=== PATIENT | female | born 1995 | race Caucasian/White ===

== ENCOUNTER 2023-06-25 14:12 | Outpatient (REF) | payer MEDICAID, SELFPAY ==
[2023-06-25 18:38] LABS: Anion Gap 15 (12-20); Blood Urea Nitrogen 10 mg/dL (9-16); Calcium 9.8 mg/dL (8.4-10.2); Carbon Dioxide 22 mmol/L (22-29); Chloride 104 mmol/L (96-108); Estimated Glomerular Filt Rate > 60; Potassium 3.9 mmol/L (3.3-5.1); Sodium 137 mmol/L (135-145)
[2023-06-25 18:54] LABS: Glucose Random 387 mg/dL (60-115)
== END 2023-06-25 14:13 | disposition home or self-care (01) ==
LOC: HO.CHCLDS 14:12
PROVIDERS: Visit Provider Internal Medicine
DX: E11.9 Type 2 diabetes mellitus without complications (principal); Z79.4 Long term (current) use of insulin
CPT/HCPCS: 36415; 80048

== ENCOUNTER 2023-07-13 | Outpatient (RCR) | payer MEDICAID, SELFPAY | END 2024-02-03 12:09 | disposition home or self-care (01) | LOC: HO.WCC | PROVIDERS: PCP Pediatrics; Visit Provider Physician Assistant | DX: E13.621 Other specified diabetes mellitus with foot ulcer (principal); L97.822 Non-pressure chronic ulcer of other part of left lower leg with fat layer exposed; L84 Corns and callosities; Z87.891 Personal history of nicotine dependence | CPT/HCPCS: 11042 ==

== ENCOUNTER 2025-01-03 11:49 | Outpatient (REF) | payer MEDICAID, SELFPAY ==
--- OUTSIDE RECORDS SUMMARY | 2025-01-03 13:22 | XMS_ITS | Encounter Summary ---
Author Organization [employer] Address [address] [place] [address] 7 [place] [address] Care Team Providers Care Radio Intelligence Operator Name Role Phone Mjao Swenson MD Primary Care Provider [phone] Yaritza Artis PharmD Unavailable [phone] Reason for Visit * Reason Onset Date Comments Med Refill 02/27/2024 Encounter Details Date Type Department Care Team ([facility] st Contact Info) Description 02/27/2024 Refill [facility] MED & PEDS [address] [place] [address] Donald Turner MD [address] [place] [address] Type 2 diabetes mellitus without complication, with long-term current use of insulin ([facility]) Social History Tobacco Use Types Packs/Day Years Used Date Smoking Tobacco: Former Cigarettes Q uit: 12/24/2021 Passive Smoke Exposure: Past Smokeless Tobacco: Former Alcohol Use Standard Drinks/Week Comments Not Currently 0 (1 standard drink = 0.6 oz pur e alcohol) Depression Answer Date Recorded Patient Health Questionnaire-9 Score 11 10/28/2023 Patient Health Questionnaire-9 Score 11 10/28/2023 Last PHQ-9: Questionnaire Data Not on file 0 10/28/2023 Housing Stability Answer Date Recorded What is your housing situation today? I do not have housing (Staying with others, in a hotel, in a retirement, living outside on the street, on a beach, in a car, or in a park 06/14/[address] you li ve. Do you have problems with any of the following? None of the above 06/14/2023 Food Insecurity Answer Date Recorded Within the past 12 months, y ou worried that your food would run out before you got money to buy more: Never True 06/25/2023 Within the past 12 months,th e food you bought just didn't last and you didn't have enough money to get more: Never True Transportation Answer Date Recorded In the past 12 months, has l ack of transportation kept you from medical appts, meetings, work or from getting things needed for daily living? No 06/25/2023 Utilities Answer Date Recorded In the past 12 months, has t he electric, gas, oil or water company threatened to shut off services in your home? No 06/25/2023 Depression Answer Date Recorded Patient Health Questionnaire-2 Score 4 10/28/2023 Comments Unknown Sex and Gender Information Value Date Recorded Sex Assigned at Female 12/30/2022 10:37 AM EDT Legal Sex Female 11:03 AM EDT Gender Identity Female 12/30/2022 10:37 AM EDT Sexual Orientation Straight 12/30/2022 10 :43 AM EDT documented as of this encounter Plan of Treatment Upcoming Encounters Date Type Department Care Team (Late st Contact Info) Description 01/12/2025 3:00 PM EDT Medication Management [facility] MED [facility] PEDS [address] [place] [address] Yaritza Artis, PharmD [address] [place] [address] 03/01/2025 3:15 PM EDT Office Visit [facility] MED [facility] PEDS [address] [place] [address] Majo Swenson MD [address] [place] [address] documented as of this encounter Visit Diagnoses Diagnosis Type 2 diabetes mellitus without complication, with long-term current use of insulin ([facility]) documented in this encounter Additional Health Concerns Assessment Noted Time PHQ-9 Depression Total Score: 11 024 4:23 PM EST documented as of this encounter Care Teams Radio Intelligence Operator Relationship Specialty Start Date End Date Majo Swenson MD [address] [place] [address] PCP - General Internal Medicine 11/30/22 Yaritza Artis PharmD [address] [place] [address] Pharmacist Internal Medicine 10/16/24 documented as of this encounter
--- OUTSIDE RECORDS SUMMARY | 2025-01-03 13:22 | XMS_ITS | Encounter Summary ---
Author Organization [employer] Address [address] [place] [address] 7 [place] [address] Care Team Providers Care Medication Reconciliation Technician Name Role Phone Majo Swenson MD Primary Care Provider [phone] Yaritza Artis PharmD Unavailable [phone] Reason for Visit * Reason Onset Date Comments Med Refill 03/07/2024 Encounter Details Date Type Department Care Team ([facility] st Contact Info) Description 03/07/2024 Refill [facility] MED & PEDS [address] [place] [address] Majo Swenson MD [address] [place] [address] Social History Tobacco Use Types Packs/Day Years [...] with others, in a hotel, in a snf, living outside on the street, on a [...] the past 12 months, has t he [employer], gas, oil or water company threatened to [...] 01/12/2025 3:00 PM EDT Medication Management [facility] MED & PEDS [address] [place] [address] Yaritza Artis, PharmD [address] [place] [address] 03/01/2025 3:15 PM EDT Office Visit [facility] MED & PEDS [address] [place] [address] Majo Swenson MD [address] [place] [address] documented as of this encounter Visit Diagnoses Not on filedocumented in this encounter Additional Health Concerns Assessment Noted Time PHQ-9 Depression Total Score: 11 024 4:23 PM EST documented as of this encounter Care Teams Medication Reconciliation Technician Relationship Specialty Start Date End Date Majo Swenson MD [address] [place] [address] PCP - General Internal Medicine 11/30/22 Yaritza Artis, Bess [address] [place] [address] Pharmacist Internal Medicine 10/16/24 documented as of this encounter
--- OUTSIDE RECORDS SUMMARY | 2025-01-03 13:22 | XMS_ITS | Encounter Summary ---
Author Organization [employer] Address [address] [place] [address] 7 [place] [address] Care Team Providers Care Back Tender Insulation Board Name Role Phone Majo Swenson MD Primary Care Provider [phone] Yaritza Artis PharmD Unavailable [phone] Encounter Details Date Type Department Care Team ([facility] Contact Info) Description 12/06/2024 Orders Only [facility] MED & PEDS [address] [place], [place] [phone] Donald Turner MD [address] [place] [address] Yeast infection (Primary Dx) Social History Tobacco Use Types Packs/Day Years [...] What is your housing situation today? I have sukhdeep espinoza 11/02/[address] you li ve. Do you have problems with any of the following? None of the above 11/02/2024 Food Insecurity Answer Date Recorded Within the past 12 months, y ou worried that your food would run out before you got money to buy more: Never True 11/02/2024 Within the past 12 months,th e food you bought just didn't last and you didn't have enough money to get more: Never True Transportation Answer Date Recorded In the past 12 months, has l ack of transportation kept you from medical appts, meetings, work or from getting things needed for daily living? No 11/02/2024 Utilities Answer Date Recorded In the past 12 months, has t he electric, gas, oil or water company threatened to shut off services in your home? No 11/02/2024 Depression Answer Date Recorded Patient Health Questionnaire-2 Score 4 10/28/2023 Internet Access Answer Date Recorded Internet Access Q1 Yes 11/02/2024 Internet Access Q2 Not on file 11/02/2024 Comments Unknown Sex and Gender Information Value [...] Description 01/12/2025 3:00 PM EDT Medication Management [facility] MED & PEDS [address] [place] [address] Yaritza Artis PharmD [address] [place] [address] 03/01/2025 3:15 PM EDT Office Visit [facility] MED & PEDS [address] [place] [address] Majo Swenson MD [address] [place] [address] documented as of this encounter Visit Diagnoses Diagnosis Yeast infection- Primary documented in this encounter Additional Health Concerns Assessment Noted Time PHQ-9 Depression Total Score: 11 024 4:23 PM EST documented as of this encounter Care Teams Back Tender Insulation Board Relationship Specialty Start Date End Date Majo Swenson MD [address] [place] [address] PCP - General Internal Medicine 11/30/22 Yaritza Artis PharmD [address] [place] [address] Pharmacist Internal Medicine 10/16/24 documented as of this encounter
--- OUTSIDE RECORDS SUMMARY | 2025-01-03 13:22 | XMS_ITS | Encounter Summary ---
Author Organization [employer] Address [address] [facility] 7t [place] [address] Care Team Providers Care Hand Fabric Cutter Name Role Phone Majo Swenson MD Primary Care Provider [phone] Yaritza Artis PharmD Unavailable [phone] Encounter Details Date Type Department Care Team (Latest Contact Info) Description 01/03/2025 Travel Social History Tobacco Use Types Packs/Day Years [...] Description 01/12/2025 3:00 PM EDT Medication Management [facility] MED & PEDS [address] [place] [address] Yaritza Artis PharmD [address] [place] [address] 03/01/2025 3:15 PM EDT Office Visit [facility] MED & PEDS [address] [place] [address] Majo Swenson MD [address] [place] [address] documented as of this encounter Visit Diagnoses Not on filedocumented in this encounter Additional Health Concerns Assessment Noted Time PHQ-9 Depression Total Score: 11 024 4:23 PM EST documented as of this encounter Care Teams Hand Fabric Cutter Relationship Specialty Start Date End Date Majo Swenson MD [address] [place] [address] PCP - General Internal Medicine 11/30/22 Yaritza Artis PharmD [address] [place] [address] Pharmacist Internal Medicine 10/16/24 documented as of this encounter
--- OUTSIDE RECORDS SUMMARY | 2025-01-03 13:22 | XMS_ITS | Encounter Summary ---
Author Organization [employer] Address [address] [facility] 7t [place] [address] Care Team Providers Care Extractor Plant Operator Name Role Phone Majo Swenson MD Primary Care Provider [phone] Yaritza Artis PharmD Unavailable [phone] Reason for Visit * Reason Onset Date Comments Med Refill 03/07/2024 Encounter Details Date Type Department Care Team (Late st Contact Info) Description 03/07/2024 Refill [facility] [address] [place], [place] [id number] Nicolasa Quinn NP [address] [place] [address] Type 2 diabetes mellitus without complication, with long-term current use of insulin ([facility]) Social History Tobacco Use Types Packs/Day Years [...] with others, in a hotel, in a custodial, living outside on the street, on a [...] Description 01/12/2025 3:00 PM EDT Medication Management [facility] MED & PEDS [address] [place] [address] Yaritza Artis, PharmD [address] [place] [address] 03/01/2025 3:15 PM EDT Office Visit [facility] MED & PEDS [address] [place] [address] Majo Swenson MD [address] [place] [address] documented as of this encounter Visit Diagnoses Diagnosis Type 2 diabetes mellitus without complication, with long-term current use of insulin ([facility]) documented in this encounter Additional Health Concerns Assessment Noted Time PHQ-9 Depression Total Score: 11 024 4:23 PM EST documented as of this encounter Care Teams Extractor Plant Operator Relationship Specialty Start Date End Date Majo Swenson MD [address] [place] [address] PCP - General Internal Medicine 11/30/22 Yaritza Artis PharmD [address] [place] [address] Pharmacist Internal Medicine 10/16/24 documented as of this encounter
--- OUTSIDE RECORDS SUMMARY | 2025-01-03 13:22 | XMS_ITS | Clinical Summary ---
Author Organization [facility] Address [address] [place] [address] Phone Care Team Providers Care Escrow Closer Name Role Phone GeorgeGlenys DO Primary Care Provider Unavaila ble Immunizations Immunization Administration Dates Next Due DTaP 5 10/08/1999,09/27/1997 Hep A, ped/adol 10/23/2011,08/11/2010 Hep B, ped/adol 04/20/1997,04/21/1996,1995 Hib (PRP-T) 07/28/1998, 7,06/02/1996, 996 Influenza, injectable, trivalent 011,06/14/2010,08/09/2009, 009 MMR 04/20/1997,06/02/1996 Meningococcal Conj (Menactra) MCV4P 12/19/2012,1 10/01/2006 Tdap 08/01/2007 Social History Tobacco Use Types Packs/Day Years Used Date Smoking Tobacco: Some Days Comments:Current Some Day Sm oker Comments Unknown Sex and Gender Information Value Date Recorded Sex Assigned at Not on file Legal Sex Female 6:21 PM EDT Gender Identity Not on file Sexual Orientation Not on file Last Filed Vital Signs Vital Sign Reading Time Taken Comments Blood Pressure - - Pulse 112 10/23/2011 11:01 AM EST Temperature 37.1 ??C (98.8 ??F) 03/21/2013 4:42 PM ED T Respiratory Rate - - Oxygen Saturation - - Inhaled Oxygen Concentration - - Weight 135 kg (298 lb) 03/21/2013 4:42 PM EDT Height 163.8 cm (5' 4.5 ) 03/21/2013 4:42 PM EDT Body Mass Index 50.36 03/21/2013 4:42 PM EDT Plan of Treatment Health Maintenance Due Date Last Done Comments Varicella Vaccines (1 of 2 - 13+ 2-dose series) 2008 DTaP,Tdap,and Td Vaccines (4 - Td or Tdap) 08/01/2017 08/01/2007, 10/08/1999, 09/27/1997 Influenza Vaccines (#1) 2024 06/04/20 11, 06/14/2010, 08/09/2009, Additional history exists COVID-19 Vaccine ( season) 2024 Hepatitis B Vaccines Completed 04/20/1997, 04/21/1996, 1995 MMR Vaccines Completed 04/20/1997, 06/02/1996 HIB Vaccines Completed 07/28/1998, 04/06, 06/02/1996, Additional history exists Hepatitis A Vaccines Completed 10/23/2011, 08/11/20 10 Meningococcal Vaccine Completed 12/19/2012, 007 HPV Vaccines Aged Out No longer eligi ble based on patient's age to complete this topic IPV Vaccines Aged Out No longer eligi ble based on patient's age to complete this topic Men B Vaccine Aged Out No longer elig ible based on patient's age to complete this topic Pneumococcal Vaccine Aged Out No long er eligible based on patient's age to complete this topic Care Teams Escrow Closer Relationship Specialty Start Date End Date Glenys Vazquez DO PCP - General 01/12/18
--- OUTSIDE RECORDS SUMMARY | 2025-01-03 13:22 | XMS_ITS | Encounter Summary ---
Author Organization [employer] Address [address] [facility] 7 [place] [address] Care Team Providers Care Cigar Inspector Name Role Phone Majo Swenson MD Primary Care Provider [phone] Yaritza Artis PharmD Unavailable [phone] Reason for Visit * Reason Onset Date Comments Prior Authorization 04/14/2024 Encounter Details Date Type Department Care Team (Late st Contact Info) Description 04/14/2024 Telephone [facility] [address] [place] [address] Majo Swenson MD [address] [place] [address] Prior Authorization Social History Tobacco Use Types Packs/Day Years [...] with others, in a hotel, in a nursing home, living outside on the street, on a [...] the past 12 months, has t he [employer], gas, oil or water [employer] threatened to shut off services in your home? No 06/25/2023 Depression Answer Date Recorded Patient Health Questionnaire-2 Score 4 10/28/2023 Comments Unknown Sex and Gender Information Value Date Recorded Sex Assigned at Female 12/30/2022 10:37 AM EDT Legal Sex Female 11:03 AM EDT Gender Identity Female 12/30/2022 10:37 AM EDT Sexual Orientation Straight 12/30/2022 10 :43 AM EDT documented as of this encounter Miscellaneous Notes * Telephone Encounter - Hipolito Griffin - 04/14/2024 11:03 AM EDT Tc from Mom calling in regards to semaglutide (Ozempic) 2 MG/1.5ML solution pen- injecton. Mom contact insurance and was informed that pcp would need to contact provider number for insurance to have medication approved. Mom stated they have been waiting for over 2 weeks and needs to sheepskin pickler medication today if possible. If any questions for mom/pt please contact [phone]. documented in this encounter Plan of Treatment Upcoming Encounters Date Type Department Care Team ([facility] st Contact Info) Description 01/12/2025 3:00 PM EDT Medication Management [facility] MED & PEDS [address] [place] [address] Yaritza Artis, PharmD [address] [place] [address] 03/01/2025 3:15 PM EDT Office Visit [facility] MED & PEDS [address] [place] [address] Majo Swenson MD [address] [place] [address] documented as of this encounter Visit Diagnoses Not on filedocumented in this encounter Additional Health Concerns Assessment Noted Time PHQ-9 Depression Total Score: 11 024 4:23 PM EST documented as of this encounter Care Teams Cigar Inspector Relationship Specialty Start Date End Date Majo Swenson MD [address] [place] [address] PCP - General Internal Medicine 11/30/22 Yaritza Artis PharmD [address] [place] [address] Pharmacist Internal Medicine 10/16/24 documented as of this encounter
--- OUTSIDE RECORDS SUMMARY | 2025-01-03 13:22 | XMS_ITS | Clinical Summary ---
Author Organization [address] [place] [address] Address [address] [place] [address] Phone Care Team Providers Care Training Engineer Name Role Phone Majo Swenson MD Primary Care Provider [phone] Allergies No known active allergies Medications No known medications Active Problems No known active problems Encounters Date Type Department Care Team Description 12/25/2024 9:19 PM EDT - 12/26/2024 1:14 AM EDT Emergency [facility] Emergency [address] [place] [address] Acute nonintractable headache, unspecified headache type (Primary Dx) Discharge Disposition: Home or Self Care 12/18/2024 2:30 PM EDT Consult Orthopedic Surgery [facility] [address] [address] Cain Jason, DPM Ingrowing nail (Primary Dx); Type 2 diabetes mellitus with other skin complications ([facility] V24, [facility] V28); Corns and callosities; Diabetic mononeuropathy simplex ([facility] V24, [facility] V28); Ulcer of toe of left foot, limited to breakdown of skin ([facility] V24, [facility] V28) from Last 3 Months Social History Tobacco Use Types Packs/Day Years Used Date Smoking Tobacco: Never Assessed Comments Unknown Sex and Gender Information Value Date Recorded Sex Assigned at Not on file Legal Sex Female 10:15 AM EST Gender Identity Not on file Sexual Orientation Not on file Obstetrics History Last Filed Vital Signs Vital Sign Reading Time Taken Comments Blood Pressure 133/86 12/25/2024 8:14 PM EDT Pulse 100 12/25/2024 8:14 PM EDT Temperature 36.6 ??C (97.9 ??F) 12/25/2024 8:14 PM ED T Respiratory Rate 16 12/25/2024 8:14 PM EDT Oxygen Saturation 100% 12/25/2024 10:50 PM EDT Inhaled Oxygen Concentration - - Weight 95.7 kg (211 lb) 12/25/2024 8:14 PM EDT Height 165.1 cm (5' 5 ) 12/25/2024 8:14 PM EDT Body Mass Index 35.11 12/25/2024 8:14 PM EDT Plan of Treatment Upcoming Encounters Date Type Department Care Team (Late st Contact Info) Description 03/19/2025 3:30 PM EDT Office Visit Orthopedic Surgery - [place] [address] [phone] Cain Jason, DPM [address] [address] Health Maintenance Due Date Last Done Comments Diabetes: Annual Foot Exam 2005 Diabetes: Annual Retina Eye Exam 2005 Hepatitis B Vaccines (1 of 3 - 19+ 3-dose series) 2014 Pneumococcal Vaccine: Pediatrics (0 to 5 Years) and At-Risk Patients (6 to 64 Years) (1 of 2 - PCV) 2014 Cervical Cancer Screening: P ap Smear 2016 Diabetes: Annual GFR (Glomerular Filtration Rate) 11/05/2023 11/04/2022, 09/14/2022, 09/02/2022 COVID-19 Vaccine (3 - 2023-2 5 season) 2024 08/05/2021, 12/14/2020 Cholesterol Screening (Lipid Panel) 11/13/2024 Depression Screening 11/13/2024 10/28/2023 Diabetes: Annual Urine Albumin-Creatinine Ratio (uACR) 11/13/2024 HIV Screening 11/13/2024 Hepatitis C Screening 11/13/2024 Social Influencers of Health Screening 11/13/2024 Hypertension/CHF/CAD Annual BMP Blood Test 12/18/2024 11/04/2022, 09/14/2022, 09/02/2022 Diabetes: Blood Sugar Contro l Test (HGBA1C) 04/15/2025 10/16/2024, 09/18/2022, 09/18/2022 Influenza Vaccine (Season Ended) 2025 DTaP,Tdap,and Td Vaccines (2 - Td or Tdap) 02/19/2033 02/19/2023 HIB Vaccines Aged Out No longer eligi ble based on patient's age to complete this topic HPV Vaccines Aged Out No longer eligi ble based on patient's age to complete this topic Hepatitis A Vaccines Aged Out No long er eligible based on patient's age to complete this topic IPV Vaccines Aged Out No longer eligi ble based on patient's age to complete this topic MMR Vaccines Aged Out No longer eligi ble based on patient's age to complete this topic Meningococcal ACWY Vaccine Aged Out N o longer eligible based on patient's age to complete this topic Meningococcal B Vaccine Aged Out No l onger eligible based on patient's age to complete this topic RSV Immunization Patients Under 20 months Aged Out No longer eligible b ased on patient's age to complete this topic Varicella Vaccines Aged Out No longer eligible based on patient's age to complete this topic Procedures Procedure Name Priority Date/Time Associated Diagnosis Comments CT HEAD WO CONTRAST STAT 12/26/2024 1 2:10 AM EDT POC , URINE DIAGNOSTIC STAT 12/25/2024 9:33 PM EDT from Last 3 Months Results * CT Head wo Contrast (12/26/2024 12:10 AM EDT) Anatomical Region Laterality Modality Head and Neck Computed Tomogra phy 12/26/2024 12:5 0 AM EDT Impressions 12/26/2024 12:50 AM EDT 1. No acute intracranial findings. This document has been electronically signed by: Adi Pires MD on 12/26/2024 00:50:16 Narrative 12/26/2024 12:50 AM EDT INDICATION: Worsening Headache x1.[address] head without contrast Comparison: None Findings: No intra-axial mass, midline shift, hydrocephalus, or acute hemorrhage. Kirkpatrick-white matter differentiation is preserved. The visualized paranasal sinuses and mastoid air cells are normal. The orbits are within normal limits. No skull fracture. Procedure Note Adi Pires MD - 12/26/2024 INDICATION: Worsening Headache x1.[address] head without contrast Comparison: None Findings: No intra-axial mass, midline shift, hydrocephalus, or acute hemorrhage. Kirkpatrick-white matter differentiation is preserved. The visualized paranasal sinuses and mastoid air cells are normal. The orbits are within normal limits. No skull fracture. IMPRESSION: 1. No acute intracranial findings. This document has been electronically signed by: Adi Pires MD on 12/26/2024 00:50:[address] PROCEDURES Final Result * POC , urine manually resulted (12/25/2024 9:33 PM EDT) HCG, Ur POC Negative Negative POC hCG Int QC Pass? Yes Yes Urine Urine specimen obtained by clean catch procedure / Unknown 12/25/2024 9:33 PM EDT us Phan GAN POINT OF CARE TEST ENTER/EDIT OR DERABLES Final Result from Last 3 Months Insurance MEDICAID - [place] Care Teams Training Engineer Relationship Specialty Start Date End Date Majo Swenson MD [address] [place] [phone] PCP - General Internal Medicine 12/26/24
--- OUTSIDE RECORDS SUMMARY | 2025-01-03 13:22 | XMS_ITS | Encounter Summary ---
Author Organization [employer] Address [address] [place] [address] 7 [place] [address] Care Team Providers Care Granite Polisher Apprentice Name Role Phone Majo Swenson MD Primary Care Provider [phone] Yaritza Artis PharmD Unavailable [phone] Reason for Visit * Reason Onset Date Comments Med Refill 03/03/2024 Encounter Details Date Type Department Care Team ([facility] st Contact Info) Description 03/03/2024 Refill [facility] [address] [place] [address] Majo Swenson MD [address] [place] [address] Social History Tobacco Use Types Packs/Day Years [...] with others, in a hotel, in a correction, living outside on the street, on a [...] the past 12 months, has t he [employer], gas, oil or water company threatened to [...] Description 01/12/2025 3:00 PM EDT Medication Management [facility] MED & PED[facility] [address] [place] [address] Yaritza Artis, PharmD [address] [place] [address] 03/01/2025 3:15 PM EDT Office Visit [facility] P[facility] [address] [place] [address] Majo Swenson MD [address] [place] [address] documented as of this encounter Visit Diagnoses Not on filedocumented in this encounter Additional Health Concerns Assessment Noted Time PHQ-9 Depression Total Score: 11 024 4:23 PM EST documented as of this encounter Care Teams Granite Polisher Apprentice Relationship Specialty Start Date End Date Majo Swenson MD [address] [place] [address] PCP - General Internal Medicine 11/30/22 Yaritza Artis, Bess [address] [place] [address] Pharmacist Internal Medicine 10/16/24 documented as of this encounter
--- OUTSIDE RECORDS SUMMARY | 2025-01-03 13:22 | XMS_ITS | Encounter Summary ---
Author Organization [facility] Address [address] [place] [address] Phone Care Team Providers Care Ironworker Helper Shop Name Role Phone Glenys Vazquez DO Primary Care Provider Unavaila ble Encounter Details Date Type Department Care Team (Late st Contact Info) Description 02/06/2011 Conversion Encounter [facility] [address] [facility] [place] [id number] Social History Tobacco Use Types Packs/Day Years Used Date Smoking Tobacco: Never Assessed Comments Unknown Sex and Gender Information Value Date Recorded Sex Assigned at Not on file Legal Sex Female 6:21 PM EDT Gender Identity Not on file Sexual Orientation Not on file documented as of this encounter Plan of Treatment Not on file documented as of this encounter Visit Diagnoses Not on filedocumented in this encounter Care Teams Ironworker Helper Shop Relationship Specialty Start Date End Date Glenys Vazquez DO PCP - General 01/12/18 documented as of this encounter
--- OUTSIDE RECORDS SUMMARY | 2025-01-03 13:22 | XMS_ITS | Encounter Summary ---
Author Organization [employer] Address [address] [place] [address] 7 [place] [address] Care Team Providers Care Cardiopulmonary Technologist Chief Name Role Phone Majo Swenson MD Primary Care Provider [phone] Yaritza Artis PharmD Unavailable [phone] Reason for Visit * Reason Onset Date Comments Med Refill 07/14/2024 Encounter Details Date Type Department Care Team ([facility] st Contact Info) Description 07/14/2024 Refill [facility] MED & PEDS [address] [place] [address] Majo Swenson MD [address] [place] [address] Social History Tobacco Use Types Packs/Day Years [...] the past 12 months, has t he [employer], gas, oil or water company threatened to [...] Description 01/12/2025 3:00 PM EDT Medication Management [facility] MED & PEDS [address] [place] [address] Yaritza Artis, PharmD [address] [place] [address] 03/01/2025 3:15 PM EDT Office Visit [facility] [address] [place] [address] Majo Swenson MD [address] [place] [address] documented as of this encounter Visit Diagnoses Not on filedocumented in this encounter Additional Health Concerns Assessment Noted Time PHQ-9 Depression Total Score: 11 024 4:23 PM EST documented as of this encounter Care Teams Cardiopulmonary Technologist Chief Relationship Specialty Start Date End Date Majo Swenson MD [address] [place] [address] PCP - General Internal Medicine 11/30/22 Yaritza Artis, Bess [address] [place] [address] Pharmacist Internal Medicine 10/16/24 documented as of this encounter
--- OUTSIDE RECORDS SUMMARY | 2025-01-03 13:22 | XMS_ITS | Encounter Summary ---
Author Organization [employer] Address [address] [facility] 7t [place] [address] Care Team Providers Care Plant Controls Specialist Name Role Phone Majo Swenson MD Primary Care Provider [phone] Yaritza Artis PharmD Unavailable [phone] Encounter Details Date Type Department Care Team (Latest Contact Info) Description 01/02/2025 Travel Social History Tobacco Use Types Packs/Day [...] Description 01/12/2025 3:00 PM EDT Medication Management [facility] MED & PEDS [address] [place] [address] Yaritza Artis PharmD [address] [place] [address] 03/01/2025 3:15 PM EDT Office Visit [facility] MED & PED[facility] [address] [place] [address] Majo Swenson MD [address] [place] [address] documented as of this encounter Visit Diagnoses Not on filedocumented in this encounter Additional Health Concerns Assessment Noted Time PHQ-9 Depression Total Score: 11 024 4:23 PM EST documented as of this encounter Care Teams Plant Controls Specialist Relationship Specialty Start Date End Date Majo Swenson MD [address] [place] [address] PCP - General Internal Medicine 11/30/22 Yaritza Artis PharmD [address] [place] [address] Pharmacist Internal Medicine 10/16/24 documented as of this encounter
--- OUTSIDE RECORDS SUMMARY | 2025-01-03 13:22 | XMS_ITS | Encounter Summary ---
Author Organization [employer] Address [address] [place] [address] 7t [place] [address] Care Team Providers Care Company Laborer Name Role Phone Majo Swenosn MD Primary Care Provider [phone] Yaritza Artis PharmD Unavailable [phone] Reason for Visit * Reason Comments Med Refill Encounter Details Date Type Department Care Team ([facility] Contact Info) Description 07/22/2024 Refill [facility] MED & PEDS [address] [place], [place] [phone] Adrianne Lehman MD [address] [place] [address] Social History Tobacco Use Types Packs/Day Years [...] with others, in a hotel, in a group home, living outside on the street, on [...] Description 01/12/2025 3:00 PM EDT Medication Management [facility] MED & PEDS [address] [place] [address] Yaritza Artis, PharmD [address] [place], [place] [id number] 03/01/2025 3:15 PM EDT Office Visit [facility] MED & PEDS [address] [place] [address] Majo Swenson MD [address] [place] [address] documented as of this encounter Visit Diagnoses Not on filedocumented in this encounter Additional Health Concerns Assessment Noted Time PHQ-9 Depression Total Score: 11 024 4:23 PM EST documented as of this encounter Care Teams Company Laborer Relationship Specialty Start Date End Date Majo Swenson MD [address] [place] [address] PCP - General Internal Medicine 11/30/22 Yaritza Artis, EzraD [address] [place] [address] Pharmacist Internal Medicine 10/16/24 documented as of this encounter
--- OUTSIDE RECORDS SUMMARY | 2025-01-03 13:22 | XMS_ITS | Encounter Summary ---
Author Organization [employer] Address [address] [facility] 7 [place] [address] Care Team Providers Care Mule Spinner Name Role Phone Majo Swenson MD Primary Care Provider [phone] Yaritaz Artis PharmD Unavailable [phone] Reason for Visit * Reason Onset Date Comments Call Back Request 04/10/2024 Encounter Details Date Type Department Care Team ([facility] st Contact Info) Description 04/10/2024 Telephone [facility] [address] [place] [address] Majo Swenson MD [address] [place] [address] Call Back Request Social History Tobacco Use Types Packs/Day Years [...] with others, in a hotel, in a usp, living outside on the street, on a [...] the past 12 months, has t he [employer], gas, oil or water [employer] threatened to shut off services in your [...] encounter Miscellaneous Notes * Telephone Encounter - Melinda Shaw - 04/10/2024 9:17 AM EDT Tc from mom requesting a call back in [employer] [place] and [employer] denied by documented in this encounter Plan of Treatment Upcoming Encounters Date Type Department Care Team ([facility] st Contact Info) Description 01/12/2025 3:00 PM EDT Medication Management [facility] MED & PEDS [address] [place] [address] Yaritza Artis, PharmD [address] [place] [address] 03/01/2025 3:15 PM EDT Office Visit [facility] MED & PEDS [address] [place], [place] [phone] Majo Swenson MD [address] [place] [address] documented as of this encounter Visit Diagnoses Not on filedocumented in this encounter Additional Health Concerns Assessment Noted Time PHQ-9 Depression Total Score: 11 024 4:23 PM EST documented as of this encounter Care Teams Mule Spinner Relationship Specialty Start Date End Date Majo Swenson MD [address] [place] [address] PCP - General Internal Medicine 11/30/22 Yaritza Artis PharmD [address] [place] [address] Pharmacist Internal Medicine 10/16/24 documented as of this encounter
--- OUTSIDE RECORDS SUMMARY | 2025-01-03 13:22 | XMS_ITS | Encounter Summary ---
Author Organization [employer] Address [address] [place] [address] [address] [place] [address] Care Team Providers Care Behavioral Therapy Coordinator Name Role Phone Majo Swenson MD Primary Care Provider [phone] Yaritza Artis PharmD Unavailable [phone] Reason for Referral * Consultation (Routine) - Authorized Specialty Diagnoses / Procedures Referred By Contoriana t Referred To Contact Behavioral Health Diagnoses Anxiety Majo Swenson MD [address] [place] [address] Phone: tel: fax: Referral ID Status Reason Start Date Expiration Date Visits Requested Visits Authorized [id number] Authorized Specialty Services Required 01/03/2025 01/03/2026 1 1 Encounter Details Date Type Department Care Team ([facility] st Contact Info) Description 01/03/2025 11:15 AM EDT Office Visit [facility] CH[facility] MED & PEDS [address] [place] [address] Majo Swenson MD [address] [place] [address] Anxiety (Primary Dx) Social History Tobacco Use Types [...] AM EDT documented as of this encounter Last Filed Vital Signs Vital Sign Reading Time Taken Comments Blood Pressure 120/92 01/03/2025 11:21 AM EDT Pulse 108 01/03/2025 11:21 AM EDT Temperature 36.6 ??C (97.9 ??F) 01/03/2025 11:21 AM E DT Respiratory Rate 20 01/03/2025 11:21 AM EDT Oxygen Saturation - - Inhaled Oxygen Concentration - - Weight 94.8 kg (209 lb) 01/03/2025 11:21 AM EDT Height 165.1 cm (5' 5 ) 01/03/2025 11:21 AM EDT Body Mass Index 34.78 01/03/2025 11:21 AM EDT documented in this encounter Plan of Treatment Upcoming Encounters Date Type Department Care Team (Late st Contact Info) Description 01/12/2025 3:00 PM EDT Medication Management [facility] MED & PEDS [address] [place] [address] Yaritza Artis PharmD [address] [place] [address] 03/01/2025 3:15 PM EDT Office Visit [facility] MED & PED[facility] [address] [place] [address] Majo Swenson MD [address] [place] [address] Scheduled Referrals Name Type Priority Associated Diagnoses Order Schedule Referral to Behavioral Health Outpatient Referral Routine Anxiety Expected: 01/03/2025 (Approximate), Expires: 01/03/2026 documented as of this encounter Visit Diagnoses Diagnosis Anxiety- Primary Anxiety state, unspecified documented in this encounter Additional Health Concerns Assessment Noted Time PHQ-9 Depression Total Score: 11 024 4:23 PM EST documented as of this encounter Care Teams Behavioral Therapy Coordinator Relationship Specialty Start Date End Date Majo Swenson MD [address] [place] [address] PCP - General Internal Medicine 11/30/22 Yaritza Artis, Bess [address] [place] [address] Pharmacist Internal Medicine 10/16/24 documented as of this encounter
--- OUTSIDE RECORDS SUMMARY | 2025-01-03 13:22 | XMS_ITS | Encounter Summary ---
Author Organization [employer] Address [address] [place] [address] 7 [place] [address] Care Team Providers Care Disability Benefits Specialist Name Role Phone Majo Swenson MD Primary Care Provider [phone] Yaritza Artis PharmD Unavailable [phone] Reason for Visit * Reason Onset Date Comments Med Refill 09/17/2024 Encounter Details Date Type Department Care Team ([facility] st Contact Info) Description 09/17/2024 Refill [facility] MED & PEDS [address] [place] [address] Majo Swenson MD [address] [place] [address] Social History Tobacco Use Types Packs/Day Years [...] with others, in a hotel, in a long term, living outside on the street, on a [...] the past 12 months, has t he [employer], gas, oil or water company threatened to [...] 01/12/2025 3:00 PM EDT Medication Management [facility] PED[facility] [address] [place] [address] Yaritza Artis, PharmD [address] [place] [address] 03/01/2025 3:15 PM EDT Office Visit [facility] PED[facility] [address] [place] [address] Majo Swenson MD [address] [place] [address] documented as of this encounter Visit Diagnoses Not on filedocumented in this encounter Additional Health Concerns Assessment Noted Time PHQ-9 Depression Total Score: 11 024 4:23 PM EST documented as of this encounter Care Teams Disability Benefits Specialist Relationship Specialty Start Date End Date Majo Swenson MD [address] [place] [address] PCP - General Internal Medicine 11/30/22 Yaritza Artis, Bess [address] [place] [address] Pharmacist Internal Medicine 10/16/24 documented as of this encounter
--- OUTSIDE RECORDS SUMMARY | 2025-01-03 13:22 | XMS_ITS | Encounter Summary ---
Author Organization [employer] Address [address] [place] [address] 7 [place] [address] Care Team Providers Care Manager Chemical Name Role Phone Majo Swenson MD Primary Care Provider [phone] Yaritza Artis PharmD Unavailable [phone] Reason for Visit * Reason Onset Date Comments Med Refill 01/03/2025 Encounter Details Date Type Department Care Team ([facility] st Contact Info) Description 01/03/2025 Refill [facility] MED & PEDS [address] [place] [address] Majo Swenson MD [address] [place] [address] Social History Tobacco Use Types Packs/Day Years [...] Description 01/12/2025 3:00 PM EDT Medication Management [facility] MED & PEDS [address] [place] [address] Yaritza Artis, PharmD [address] [place] [address] 03/01/2025 3:15 PM EDT Office Visit [facility] MED & PEDS [address] [place] [address] Majo Swenson MD [address] [place] [address] documented as of this encounter Visit Diagnoses Not on filedocumented in this encounter Additional Health Concerns Assessment Noted Time PHQ-9 Depression Total Score: 11 024 4:23 PM EST documented as of this encounter Care Teams Manager Chemical Relationship Specialty Start Date End Date Majo Swenson MD [address] [place] [address] PCP - General Internal Medicine 11/30/22 Yaritza Artis, Bess [address] [place] [address] Pharmacist Internal Medicine 10/16/24 documented as of this encounter
--- OUTSIDE RECORDS SUMMARY | 2025-01-03 13:22 | XMS_ITS | Encounter Summary ---
Author Organization [employer] Address [address] [place] [address] 7 [place] [address] Care Team Providers Care Mill Operator Head Name Role Phone Majo Swenson MD Primary Care Provider [phone] Yaritza Artis PharmD Unavailable [phone] Encounter Details Date Type Department Care Team ([facility] st Contact Info) Description 10/04/2023 Orders Only [facility] MED & PEDS [address] [place], [place] [phone] Donald Turner MD [address] [place] [address] Type 2 diabetes mellitus without complication, with long-term current use of insulin ([facility]) (Primary Dx) Social History Tobacco Use Types Packs/Day Years Used Date Smoking Tobacco: Former Cigarettes Q uit: 12/24/2021 Smokeless Tobacco: Former Alcohol Use Standard Drinks/Week Comments Not Currently 0 (1 standard drink = 0.6 oz pur e alcohol) Depression Answer Date Recorded Patient Health Questionnaire-9 Score 18 12/31/2022 Housing Stability Answer Date Recorded What is your housing situation today? I do not have housing (Staying with others, in a hotel, in a senior care, living outside on the street, on a [...] Answer Date Recorded Patient Health Questionnaire-2 Score 6 12/31/2022 Comments Yes Sex and Gender Information Value Date Recorded Sex Assigned at Female 12/30/2022 10:37 AM EDT Legal Sex Female 11:03 AM EDT Gender Identity Female 12/30/2022 10:37 AM EDT Sexual Orientation Straight 12/30/2022 10 :43 AM EDT documented as of this encounter Plan of Treatment Upcoming Encounters Date Type Department Care Team (Late st Contact Info) Description 01/12/2025 3:00 PM EDT Medication Management [facility]ED[facility] [address] [place] [address] Yaritza Artis, PharmD [address] [place], [place] [phone] 03/01/2025 3:15 PM EDT Office Visit [facility] PED[facility] [address] [place] [address] Majo Swenson MD [address] [place] [address] documented as of this encounter Visit Diagnoses Diagnosis Type 2 diabetes mellitus without complication, with long-term current use of insulin ([facility])- Primary documented in this encounter Additional Health Concerns Assessment Noted Time PHQ-9 Depression Total Score: 18 023 9:19 AM EDT documented as of this encounter Care Teams Mill Operator Head Relationship Specialty Start Date End Date Majo Swenson MD [address] [place] [address] PCP - General Internal Medicine 11/30/22 Yaritza Artis, EzraD [address] [place] [address] Pharmacist Internal Medicine 10/16/24 documented as of this encounter
--- OUTSIDE RECORDS SUMMARY | 2025-01-03 13:22 | XMS_ITS | Encounter Summary ---
Author Organization [employer] Address [address] [place] [address] 7 [place] [address] Care Team Providers Care Senior Technical Specialist Name Role Phone Majo Swenson MD Primary Care Provider [phone] Yaritza Artis PharmD Unavailable [phone] Encounter Details Date Type Department Care Team ([facility] Contact Info) Description 04/28/[address] [facility] MED & PEDS [address] [place], [place] [phone] Majo Swenson MD [address] [place] [address] Social History Tobacco Use Types Packs/Day Years [...] with others, in a hotel, in a skilled nursing, living outside on the street, on a [...] Description 01/12/2025 3:00 PM EDT Medication Management [facility] & PEDS [address] [place] [address] Yaritza Artis PharmD [address] [place] [address] 03/01/2025 3:15 PM EDT Office Visit [facility] MED & PEDS [address] [place] [address] Majo Swenson MD [address] [place] [address] documented as of this encounter Visit Diagnoses Not on filedocumented in this encounter Additional Health Concerns Assessment Noted Time PHQ-9 Depression Total Score: 11 024 4:23 PM EST documented as of this encounter Care Teams Senior Technical Specialist Relationship Specialty Start Date End Date Majo Swenson MD [address] [place] [address] PCP - General Internal Medicine 11/30/22 ArtisYaritza PharmD [address] [place] [address] Pharmacist Internal Medicine 10/16/24 documented as of this encounter
--- OUTSIDE RECORDS SUMMARY | 2025-01-03 13:22 | XMS_ITS | Encounter Summary ---
Author Organization [employer] Address [address] [place] [address] 7 [place] [address] Care Team Providers Care Rn Gyn Name Role Phone Majo Swenson MD Primary Care Provider Yaritza Artis PharmD Unavailable [phone] Reason for Visit * Reason Onset Date Comments Med Refill 08/01/2024 Encounter Details Date Type Department Care Team ([facility] st Contact Info) Description 08/01/2024 Refill [facility] MED & PEDS [address] [place] [address] Majo Swenson MD [address] [place] [address] Social History Tobacco Use Types Packs/Day Years [...] the past 12 months, has t he [employer], gas, oil or water company threatened to [...] Description 01/12/2025 3:00 PM EDT Medication Management [facility] MED & PEDS [address] [place] [address] Yaritza Artis, PharmD [address] [place] [address] 03/01/2025 3:15 PM EDT Office Visit [facility] MED & PEDS [address] [place] [address] Majo Swenson MD [address] [place] [address] documented as of this encounter Visit Diagnoses Not on filedocumented in this encounter Additional Health Concerns Assessment Noted Time PHQ-9 Depression Total Score: 11 024 4:23 PM EST documented as of this encounter Care Teams Rn Gyn Relationship Specialty Start Date End Date Majo Swenson MD [address] [place] [address] PCP - General Internal Medicine 11/30/22 Yaritza Artis, Bess [address] [place] [address] Pharmacist Internal Medicine 10/16/24 documented as of this encounter
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
[2025-01-03 14:35] LABS: Estimated Average Glucose 171 mg/dL; Hemoglobin A1C 223.5656 umol/L; Hemoglobin A1c % 7.6 % (<6.0); Total Hemoglobin (HGBA1C) 3786.6581 umol/L
[2025-01-03 14:48] LABS: Alanine Aminotransferase 41 U/L (0-31); Albumin Level 4.1 g/dL (3.5-5.0); Alkaline Phosphatase 99 U/L (39-117); Anion Gap 12 (12-20); Aspartate Amino Transferase 25 U/L (5-31); Bilirubin Total 0.2 mg/dL (0.0-1.0); Blood Urea Nitrogen 11 mg/dL (9-16); Calcium 9.4 mg/dL (8.4-10.2); Carbon Dioxide 25 mmol/L (22-29); Chloride 103 mmol/L (96-108); Cholesterol 137 mg/dL (<200); Estimated Glomerular Filt Rate > 60; Glucose Random 133 mg/dL (60-115); HDL Cholesterol 46 mg/dL (>40); LDL Cholesterol Calculated 64 mg/dL (<100); Sodium 136 mmol/L (135-145); Total Protein 7.6 g/dL (6.5-8.0); Triglycerides 138 mg/dL (<150)
[2025-01-03 15:06] LABS: TSH reflex Free T4 0.73 uIU/mL (0.32-4.0)
== END 2025-01-03 11:50 | disposition home or self-care (01) ==
LOC: HO.CHCLDS 11:49
PROVIDERS: Visit Provider Pediatrics
DX: F41.9 Anxiety disorder, unspecified (principal); E11.9 Type 2 diabetes mellitus without complications; Z79.4 Long term (current) use of insulin
CPT/HCPCS: 36415; 80053; 80061; 83036; 84443

== ENCOUNTER 2025-05-03 15:46 | Outpatient (REF) | payer MEDICAID, SELFPAY ==
--- OUTSIDE RECORDS SUMMARY | 2025-05-03 15:15 | XMS_ITS | Encounter Summary ---
Author Organization [employer] Address [address] [place] [address] 7 [place] [address] Care Team Providers Care Mushroom Grower Name Role Phone Majo Swenson MD Primary Care Provider [phone] Yaritza Artis PharmD Unavailable [phone] Encounter Details Date Type Department Care Team ([facility] Contact Info) Description 05/03/2025 3:15 PM EDT Office Visit [facility] [address] [place], [place] [phone] Majo Swenson MD [address] [place] [address] Acute cystitis without hematuria (Primary Dx); Primary hypertension; Moderate anxiety Social History Tobacco Use Types Packs/Day Years Used Date Smoking Tobacco: Former Cigarettes Q uit: 12/24/2021 Passive Smoke Exposure: Past Smokeless Tobacco: Former Alcohol Use Standard Drinks/Week Comments Not Currently 0 (1 standard drink = 0.6 oz pur e alcohol) Depression Answer Date Recorded Patient Health Questionnaire-9 Score 2 01/19/2025 Patient Health Questionnaire-9 Score 2 01/19/2025 Last PHQ-9: Questionnaire Data Not on file 0 01/19/2025 Housing Stability Answer Date Recorded What is [...] Answer Date Recorded Patient Health Questionnaire-2 Score 0 01/19/2025 Internet Access Answer Date Recorded Internet Access Q1 Yes 11/02/2024 Internet Access Q2 Not on file 11/02/2024 Comments No Sex and Gender Information Value Date Recorded Sex Assigned at Female 12/30/2022 10:37 AM EDT Legal Sex Female 11:03 AM EDT Gender Identity Female 12/30/2022 10:37 AM EDT Sexual Orientation Straight 12/30/2022 10 :43 AM EDT documented as of this encounter Last Filed Vital Signs Vital Sign Reading Time Taken Comments Blood Pressure 110/70 05/03/2025 3:22 PM EDT Pulse 92 05/03/2025 3:22 PM EDT Temperature 36.1 C (97 F) 05/03/2025 3:22 PM EDT Respiratory Rate 20 05/03/2025 3:22 PM EDT Oxygen Saturation - - Inhaled Oxygen Concentration - - Weight 96.2 kg (212 lb) 05/03/2025 3:22 PM EDT Height - - Body Mass Index 34.9 04/10/2025 11:21 AM EDT documented in this encounter Progress Notes * Majo Swenson MD - 05/03/2025 3:15 PM EDT Subjective Patient ID: Tegan Martinez is a 29 y.o. female who presents for UTI follow up. Tegan is a 29 y/o diabetic female patient of ours here for f/u acute UTI treated at a local urgent care clinic initially with Macrobid. She was then called and her antibiotic was switched to Bactrim twice daily for 7 days. Patient started taking the Bactrim today, denies dysuria or fevers. Denies nausea or vomiting or abdominal pain. States has been drinking water. UA today shows large blood but she has started menstruating, no nitrites or leukocytes. Review of Systems Constitutional: Negative for activity change, chills, fever and unexpected weight change. Respiratory: Negative for cough, shortness of breath and wheezing. Cardiovascular: Negative for chest pain, palpitations and leg swelling. Gastrointestinal: Negative for abdominal pain and blood in stool. Endocrine: Negative for polydipsia and polyuria. Genitourinary: Positive for vaginal bleeding. Negative for decreased urine volume, difficulty urinating, dyspareunia, dysuria, enuresis, flank pain, frequency, hematuria, menstrual problem and pelvicpain. Musculoskeletal: Negative for arthralgias and gait problem. Skin: Negative for color change and rash. Neurological: Negative for dizziness and headaches. Hematological: Negative for adenopathy. Psychiatric/Behavioral: Negative for dysphoric mood, hallucinations, sleep disturbance and suicidalideas. The patient is not nervous/anxious. Objective BP 110/70 (BP Location: Left arm, Patient Position: Sitting, BP Cuff Size: Adult) Pulse92 Temp 97 ??F (36.1 ??C) (Oral) Resp 20 Wt 212 lb (96.2 kg) LMP 05/01/2025 (Exact Date) BMI 34.90 kg/m?? Physical Exam Constitutional: General: She is not in acute distress. Appearance: Normal appearance. She is not ill-appearing. HENT: Head: Normocephalic. Right Ear: Tympanic membrane and ear canal normal. Left Ear: Tympanic membrane and ear canal normal. Nose: Nose normal. Mouth/Throat: Mouth: Mucous membranes are moist. Pharynx: No oropharyngeal exudate or posterior oropharyngeal erythema. Eyes: Extraocular Movements: Extraocular movements intact. Conjunctiva/sclera: Conjunctivae normal. Pupils: Pupils are equal, round, and reactive to light. Cardiovascular: Rate and Rhythm: Normal rate and regular rhythm. Pulses: Normal pulses. Heart sounds: Normal heart sounds. Pulmonary: Effort: Pulmonary effort is normal. No respiratory distress. Breath sounds: Normal breath sounds. Abdominal: General: There is distension. Palpations: Abdomen is soft. Tenderness: There is no abdominal tenderness. There is no right CVA tenderness, left CVA tendernessor guarding. Musculoskeletal: General: Normal range of motion. Cervical back: Normal range of motion. Skin: General: Skin is warm. Capillary Refill: Capillary refill takes less than 2 seconds. Neurological: General: No focal deficit present. Mental Status: She is alert and oriented to person, place, and time. Psychiatric: Mood and Affect: Mood normal. Behavior: Behavior normal. Thought Content: Thought content normal. Judgment: Judgment normal. Assessment/Plan Diagnoses and all orders for this visit: Acute cystitis without hematuria Comments: Repeat UA benign except for large blood but patient is currently menstruating. Drink plenty of water. Finish course of Bactrim twice daily prescribed at urgent care. Send urinary culture and change antibiotic if needed. Patient will be called with results once available. Follow-up with me and with CD[facility] on May 10 as scheduled. Orders: - POCT Urinalysis - Culture, Urine, Routine; Future Primary hypertension Comments: BP well-controlled and stable today. Medications with no changes. Moderate anxiety Comments: Patient was referred to behavioral health therapy at her last visit and states has her initial appointment next week. Advised not to miss. documented in this encounter Plan of Treatment Upcoming Encounters Date Type Department Care Team (Late st Contact Info) Description 05/10/2025 1:30 PM EDT Telemedicine [facility] [address] [place] [address] Yaritza Artis, PharmD [address] [place] [address] Scheduled Orders Name Type Priority Associated Diagnoses Orde r Schedule Culture, Urine, Routine Microbiology Routine Acute cystitis without hematuria Expected: 05/03/2025 (Approximate), Expires: 05/03/2026 documented as of this encounter Procedures Procedure Name Priority Date/Time Associated Diagnosis Comments POCT URINALYSIS DIPSTICK Routine 05/03/2025 3:55 PM EDT Acute cystitis without hematuria documented in this encounter Results * (ABNORMAL) POCT Urinalysis (05/03/2025 3:55 PM EDT) Color, UA Red Clarity, UA Hazy Glucose, UA Negative Bilirubin, UA Negative Ketones, UA Negative Spec Grav, UA 1.030 Blood, UA Positive(A) Negative, None Detected Comment:large pH, UA 5.5 Protein, UA Few 15 Comment:100 Urobilinogen, UA 0.2 Leukocytes, UA Negative Negative, Rare, Trace Nitrite, UA Negative Negative, None Detected Appearance, UA hazy QC Media Lot # [id number] Lot# Expiration Date 93,025 Urine 05/03/2025 3:55 PM EDT Majo Swenson MD POINT OF CARE TEST ENTER/EDIT ORDERABLES Final Result documented in this encounter Visit Diagnoses Diagnosis Acute cystitis without hematuria- Primary Primary hypertension Unspecified essential hypertension Moderate anxiety documented in this encounter Additional Health Concerns Assessment Noted Time PHQ-9 Depression Total Score: 2 01/20/20 25 8:23 AM EDT documented as of this encounter Care Teams Mushroom Grower Relationship Specialty Start Date End Date Majo Swenson MD [address] [place] [address] PCP - General Internal Medicine 11/30/22 Yaritza Artis PharmD [address] [place] [address] Pharmacist Internal Medicine 10/16/24 documented as of this encounter
--- OUTSIDE RECORDS SUMMARY | 2025-05-03 16:08 | XMS_ITS | Encounter Summary ---
Author Organization [employer] Address [address] [place] [address] [address] [place] [address] Care Team Providers Care Principal Mechanical Engineer Name Role Phone Majo Swenson MD Primary Care Provider [phone] Yaritza Artis PharmD Unavailable [phone] Reason for Visit * Reason Onset Date Comments Med Refill 01/03/2025 Encounter Details Date Type Department Care Team ([facility] Contact Info) Description 01/03/2025 Refill [facility] [address] [place], [place] [id number] Majo Swenson MD [address] [place] [address] Social History Tobacco Use Types Packs/Day Years [...] Info) Description 05/10/2025 1:30 PM EDT Telemedicine [facility] [address] [place] [address] Yaritza Artis PharmD [address] [place] [address] documented as of this encounter Visit Diagnoses Not on filedocumented in this encounter Additional Health Concerns Assessment Noted Time PHQ-9 Depression Total Score: 11 024 4:23 PM EST documented as of this encounter Care Teams Principal Mechanical Engineer Relationship Specialty Start Date End Date Majo Swenson MD [address] [place] [address] PCP - General Internal Medicine 11/30/22 Yaritza Artis PharmD [address] [place] [address] Pharmacist Internal Medicine 10/16/24 documented as of this encounter
--- OUTSIDE RECORDS SUMMARY | 2025-05-03 16:08 | XMS_ITS | Clinical Summary ---
Author Organization [employer] Address [address] [place] [address] 7[address] [place] [address] Care Team Providers Care Pressing Machine Tender Name Role Phone Majo Swenson MD Primary Care Provider [phone] Yaritza Artis PharmD Unavailable [phone] Allergies No known active allergies Medications * This document contains information received from the source organization and may not represent a complete record from that organization. Blood Pressure kit Check BP daily as needed 1 kit 023 Active acetaminophen (Tylenol) 325 MG tablet TAKE TWO TABLETS EVERY 4 HOURS NEEDED, DO NOT EXCEED 12 tabs PER DAY 023 Active Alcohol Swabs (B-D SINGLE USE SWABS REGULAR) pads USE 1 DIRECTED WITH INSULIN ADMINISTRATION 4 TIMES DAILY 023 Active FreeStyle lancetsIndicati ons:Type 2 diabetes mellitus without complication, with long-term current use of insulin ([facility]) 1 each by Other route 3 times daily. 100 each 11 024 Active FREESTYLE LITE test stripIndication s:Type 2 diabetes mellitus without complication, with long-term current use of insulin (CMS/[facility]) Check BS tid 100 each 11 024 Active ammonium lactate (Lac-Hydrin) 12 % lotion Apply topically to skin daily 396 g 11 025 Active hydrOXYzine HCl (Atarax) 25 MG tablet Take 1 tablet (25 mg) by mouth every 8 (eight) hours if needed for anxiety. 90 tablet 025 Active Tirzepatide (Mounjaro) 12.5 MG/0.5ML solution auto-injectorIn dications:Type 2 diabetes mellitus without complication, without long-term current use of insulin (CMS/[facility]) Inject 12.5 mg under the skin 1 (one) time per week. 2 mL 1 025 Active NIFEdipine XL (Procardia XL) 30 MG 24 hr tabletIndicatio ns:Primary hypertension Take 1 tablet (30 mg) by mouth Once per day. Do not crush, chew, or split. 90 tablet Active Vit-Fe Fumarate-FA ( Vitamins) 28-0.8 MG tabletIndicatio ns:Family Planning Take 1 tablet by mouth Once per day. 90 tablet 3 025 2025 Active loperamide (Imodium) 2 MG capsule Take 1 capsule daily as needed for diarrhea Active metFORMIN XR (Glucophage-XR) 500 MG 24 hr tabletIndicatio ns:Type 2 diabetes mellitus without complication, without long-term current use of insulin (CMS/[facility]) Take 1 tablet (500 mg) by mouth Once per day. Take with the largest meal of the day 90 tablet 1 Active Continuous Glucose Sensor (FreeStyle Ana 3 Plus Sensor) miscIndications :Type 2 diabetes mellitus without complication, without long-term current use of insulin ([facility]) 1 each every 15 days. 2 each Active nitrofurantoin, macrocrystal-mo nohydrate, (Macrobid) 100 MG capsule TAKE 1 CAPSULE (ORAL) 2 TIMES PER DAY FOR 5 DAYS MUST ADMINISTER WITH A MEAL/FOOD Active fluconazole (Diflucan) 100 MG tablet TAKE ONE TABLET ON FIRST DAY OF ANTIBIOTICS AND ONE TABLET ON LAST DAY OF ANTIBIOTICS Active sulfamethoxazol e-trimethoprim (Bactrim DS) 800-160 MG tablet Take 1 tablet by mouth 2 times daily. Active vitamin (Prenatabs Rx) 29-1 MG tablet Take 1 tablet by mouth in the morning. 2024 Discontinued( ed list cleanup (will not trigger notification to Pharmacy)) triamcinolone (Kenalog) 0.5 % ointment Apply topically 2 times daily. 45 g 3 024 2024 Continuous Glucose Contracts Director (FreeStyle Ana 2 [place]) device SCAN SENSOR EVERY 8 HOURS 1 each 024 2024 Discontinued(M ed list cleanup (will not trigger notification to Pharmacy)) dapagliflozin (Farxiga) 5 MG Take 1 tablet (5 mg) by mouth Once per day. 90 tablet 2 025 2024 Discontinued(T herapy completed) pseudoephedrine (Sudafed) 60 MG tablet Take 1 tablet (60 mg) by mouth every 6 (six) hours if needed for congestion for up to 10 days. 30 tablet 025 2024 Discontinued(M ed list cleanup (will not trigger notification to Pharmacy)) lisinopril-hydr oCHLOROthiazide 10-12.5 MG tablet Take 1 tablet by mouth Once per day. 90 tablet 1 025 2024 Discontinued(A lternate therapy) Continuous Glucose Sensor (FreeStyle Ana 2 Sensor) [facility] USE DIRECTED AND CHANGE EVERY 14 DAYS 2 each 025 2024 Discontinued(M ed list cleanup (will not trigger notification to Pharmacy)) Xzydufkl-Ane-Nn -FA ( 1 + IRON PO) Take 1 tablet by mouth Once per day. 2024 Discontinued(M ed list cleanup (will not trigger notification to Pharmacy)) Hospital, Clinic, or Other Facility Administered Medication Ordered Dose Route Frequency Start Date End Date Status lidocaine (Xylocaine) 1 % injection 40 mgIndications:Nexplanon removal 40 mg IJ Once 04/10/2025 04/10/2025 Ended Active Problems Problem Noted Date Diagnosed Date Nexplanon removal 04/12/2025 Assessment & Plan (04/12/2025 9:48 AM EDT): Nexplanon removed intact, easily. See procedure note. Report redness, pain or swelling at removal site. Report irregular bleeding or missed menses. Keep pressure bandage on x 24h, steristrips and bandaid x 3-5 days. Keep arm dry for 24 hours. Moderate anxiety 01/19/2025 Primary hypertension 12/18/2024 Central obesity 04/13/2023 GBS [...] - contraception plans - - Gender - Name - - Circumcision - - - - Epidural - - Time Signal Wirer - - Flu - - Tdap - Encounters Date Type Department Care Team Description 05/03/2025 3:15 PM EDT Office Visit [facility] [address] [place] [address] Majo Swenson MD Acute cystitis without hematuria (Primary Dx); Primary hypertension; Moderate anxiety 05/03/2025 Travel 04/24/2025 2:00 PM EDT Telemedicine [facility] [address] [place] [address] Yaritza Artis PharmD Type 2 diabetes mellitus without complication, without long-term current use of insulin ([facility]) (Primary Dx); Primary hypertension 04/24/2025 Travel 04/18/2025 Telephone [facility] [address] [place] [address] Majo Swenson MD CGM PA 04/10/2025 11:00 AM EDT Procedure Visit [facility] [address] [place] [address] Lulu Tse MD Nexplanon removal (Primary Dx); Encounter for preconception consultation 04/09/2025 2:00 PM EDT Telemedicine [facility] [address] [place] [address] Yaritza Artis, Bess Type 2 diabetes mellitus without complication, without long-term current use of insulin (CMS/HCC) (Primary Dx); Primary hypertension 04/09/2025 Orders Only [facility] [address] [place] [address] Majo Swenson MD 04/09/2025 Travel 04/03/2025 Travel 04/02/2025 Travel 03/20/2025 Refill [facility] [address] [place] [address] Majo Swenson MD Type 2 diabetes mellitus without complication, without long-term current use of insulin (CMS/HCC) 03/07/2025 Refill [facility] [address] [place] [address] Majo Swenson MD 03/01/2025 3:15 PM EDT Office Visit [facility] [address] [place] [address] Majo Swenson MD Type 2 diabetes mellitus without complication, without long-term current use of insulin (CMS/HCC) (Primary Dx); Primary hypertension 03/01/2025 Travel 02/28/2025 Refill [facility] [address] [place] [address] Majo Swenson MD 02/23/2025 Orders Only [facility] [address] [place] [address] Majo Swenson MD 02/15/2025 Refill [facility] [address] [place] [address] Yaritza Artis PharmD 02/13/2025 Refill [facility]ED[facility] [address] [place] [address] Majo Swenson MD from Last 3 Months Immunizations Immunization Administration Dates Next Due Tdap 02/19/2023 Family [...] Q2 Not on file 11/02/2024 Comments No Intention Date Recorded No desire to become (finding) 0 12/14/2024 Sex and Gender Information Value Date Recorded [...] 20 05/03/2025 3:22 PM EDT Oxygen Saturation 98% 04/10/2025 11:21 AM EDT Inhaled Oxygen Concentration - - Weight 96.2 kg (212 lb) 05/03/2025 3:22 PM EDT Height 166 cm (5' 5.35 ) 04/10/2025 11:21 AM EDT Body Mass Index 34.9 04/10/2025 11:21 AM EDT Plan of Treatment Upcoming Encounters Date Type Department Care Team (Late st Contact Info) Description 05/10/2025 1:30 PM EDT Telemedicine [facility] [address] [place] [address] Yaritza Artis, PharmD [address] [place] [address] Health Maintenance Due Date Last Done Comments Dental Oral Exam 1995 Dental Prophylaxis 1995 Dental X-Ray: Bitewings 1995 Dental X-Ray: Full Mouth 1995 HIV Screening 1995 Eye Exam 2005 HPV Vaccines (1 - 3-dose series) 2010 Hepatitis C Screening 2013 Diabetes: Urine Protein Screening 2014 Hepatitis B Vaccines (1 of 3 - 19+ 3-dose series) 2014 Pneumococcal Vaccine: Pediatrics (0 to 5 Years) and At-Risk Patients (6 to 49) Years (1 of 2 - PCV) 2014 COVID-19 Vaccine (3 - season) 2024 08/05/2021, 12/14/2020 Influenza Vaccine (#1) 2025 Diabetes: Hemoglobin A1C 06/01/2025 025, 01/03/2025, 10/16/2024, Additional history exists Disability Screening 10/31/2025 10/31/2024 Alcohol/Substance Use Screening 11/02/2025 11/02/2024 SDOH Screening 11/02/2025 11/02/2024 Diabetes: Foot Exam 12/14/2025 12/14/2024, 12/14/2024, 12/14/2024, Additional history exists Family Planning (PISQ) 12/18/2025 12/18/2024 Lipid Panel 01/03/2026 01/03/2025 Depression Screening 01/19/2026 01/19/2025, 10/31/19 Tobacco Screening 05/03/2026 05/03/2025 Pap Smear 09/18/2027 09/18/2022 DTaP/Tdap/Td Vaccines (2 [...] 3:55 PM EDT Acute cystitis without hematuria POCT , URINE Routine 04/10/2025 1:05 PM EDT Encounter for preconception consultation [facility] REMOVAL NON-BIODEGRADABLE DRUG DELIVERY IMPLANT Routine 04/10/2025 12:06 PM EDT Nexplanon removal POCT GLYCATED HEMOGLOBIN, TOTAL Routine 03/01/2025 4:24 PM EDT Type 2 diabetes mellitus without complication, without long-term current use of insulin ([facility]) Primary hypertension POCT GLUCOSE Routine 03/01/2025 4:23 PM EDT Type 2 diabetes mellitus without complication, without long-term current use of insulin ([facility]) Primary hypertension LIPID PANEL, STANDARD Routine 01/03/2025 11:53 AM EDT HM PAP/HPV Routine 09/18/2022 from Last 3 Months or Most Recently Relevant to Health Maintenance Results * (ABNORMAL) POCT Urinalysis (05/03/2025 3:55 [...] Media Lot # [id number] Lot# Expiration Date Urine 05/03/2025 3:55 PM EDT Majo Swenson MD POINT OF CARE TEST ENTER/EDIT ORDERABLES Final Result * POCT Urine (04/10/2025 1:05 PM EDT) Preg Test, Ur Negative Negative, Indeterminate, None Detected, Invalid, Specimen unsatisfactory for evaluation, Weakly Positive, 2+ QC Media Lot # [id number] Lot# Expiration Date ,026 Urine 04/10/2025 1:05 PM EDT Lulu Tse MD POINT OF CARE TEST ENTER/EDIT ORDERABLES Final Result * VA REMOVAL NON-BIODEGRADABLE DRUG DELIVERY IMPLANT (04/10/2025 12:06 PM EDT) Lulu Salazar MD - 04/10/2025 12:06 PM EDT Lulu Tse MD 04/12/2025 9:52 AM Insertion/Removal of Contraceptive Capsule Date/Time: 04/10/2025 12:06 PM Performed by: Lulu Tse MD Authorized by: Lulu Tse MD Participating Staff: Dana Gonzales [place] Consent: Consent obtained: Written Consent given by: Patient Procedural risks and benefits discussed: Yes Patient questions answered: yes Patient agrees, verbalizes understanding, and wants to proceed: yes Indication: Indication: presence of non-biodegradable drug delivery implant Pre-procedure: Pre-procedure timeout performed: yes Prepped with: povidone-iodine Local anesthetic: Lidocaine without epinephrine The site was cleaned and prepped in a sterile fashion: yes Procedure: Procedure: Removal Small stab incision was made in arm: yes Left/right: Left Site was closed with steri-strips and pressure bandage applied: yes Lulu Tse MD IN CLINIC/BEDSIDE ORDERABLES Final Result * (ABNORMAL) POCT HGB A1C (03/01/2025 4:24 PM EDT) Hemoglobin A1C 7.5(A) 4.0 - 6.0 % Blood 03/01/2025 4:24 PM EDT Majo Swenson MD POINT OF CARE TEST ENTER/EDIT ORDERABLES Final Result * POCT Glucose (03/01/2025 4:23 PM EDT) Glucose Blood, POC 151 60 - 200 mg/dL Blood Capillary blood specimen / Unknown 03/01/2025 4:23 PM EDT Majo Swenson MD POINT OF CARE TEST ENTER/EDIT ORDERABLES Final Result * Lipid Panel, Standard (01/03/2025 11:53 AM EDT) Triglycerides 138 <150 mg/dL [facility] Comment:Desirable Triglyceri de: less than 150 mg/dLBorderline High Triglyceride 150-199 mg/dLHigh Triglyceride: 200-499 mg/dLVery High Triglyceride: greater than or equal to 5OO mg/dL Cholesterol 137 <200 mg/dL [facility] Comment:Desirable Cholestero l: less than 200 mg/dLBorderline High Cholesterol: 200-239 mg/dLHigh Cholesterol: greater than 239 mg/dL LDL Cholesterol Calculated 64 <100 mg/dL [facility] Comment:Desirable LDL: less than 100 mg/dLNear Optimal/Above Optimal LDL: 110- 129 mg/dLBorderline High LDL: 130-159 mg/dLHigh LDL: 160-189 mg/dLVery High LDL: greater than or equal to 190 mg/dL HDL Cholesterol 46 >40 mg/dL [facility] Comment:Desirable HDL: great er than 40 mg/dL Note: This HDL assay may give artificially low results in patients with liver disease. 01/03/2025 11:5 3 AM EDT 01/03/2025 2:15 PM EDT Majo Swenson MD LAB BLOOD ORDERABLES Final Re sult [facility] [address] [place] [address] [phone] * Pap Smear (09/18/2022) Pap Negative for intraephithelial lesion or malignancy Negative for intraephithelial lesion or malignancy, Other HPV Undetected Undetected, Indeterminate, Quantitative, Not Detected Historical Provider HEALTH MAINTENANCE Final Result from Last 3 Months or Most Recently Relevant to Health Maintenance [facility] AD[place] Care Teams Pressing Machine Tender Relationship Specialty Start Date End Date Majo Swenson MD [address] [place] [address] PCP - General Internal Medicine 11/30/22 Yaritza Artis PharmD [address] [place] [phone] Pharmacist Internal Medicine 10/16/24
--- OUTSIDE RECORDS SUMMARY | 2025-05-03 16:08 | XMS_ITS | Encounter Summary ---
Author Organization [employer] Address [address] [place] [address] 7 [place] [address] Care Team Providers Care Back Padder Name Role Phone Majo Swenson MD Primary Care Provider [phone] Yaritza Artis PharmD Unavailable [phone] Encounter Details Date Type Department Care Team ([facility] Contact Info) Description 12/06/2024 Orders Only [facility] MED & PEDS [address] [place], [place] [phone] Donald Turner MD [address] [place] [address] Yeast infection (Primary Dx) Social History Tobacco [...] Info) Description 05/10/2025 1:30 PM EDT Telemedicine [facility] MED & PEDS [address] [place] [address] Yaritza Artis, PharmD [address] [place] [address] documented as of this encounter Visit Diagnoses Diagnosis Yeast infection- Primary documented in this encounter Additional Health Concerns Assessment Noted Time PHQ-9 Depression Total Score: 11 024 4:23 PM EST documented as of this encounter Care Teams Back Padder Relationship Specialty Start Date End Date Majo Swenson MD [address] [place] [address] PCP - General Internal Medicine 11/30/22 Yaritza Artis PharmD [address] [place] [address] Pharmacist Internal Medicine 10/16/24 documented as of this encounter
--- OUTSIDE RECORDS SUMMARY | 2025-05-03 16:09 | XMS_ITS | Clinical Summary ---
Author Organization [facility] Address [address] [place] [address] Phone Care Team Providers Care Malware Analyst Name Role Phone Glenys Vazquez DO Primary Care Provider Unavaila ble Immunizations [...] 112 10/23/2011 11:01 AM EST Temperature 37.1 C (98.8 F) 03/21/2013 4:42 PM EDT Respiratory Rate - - Oxygen Saturation - [...] Td or Tdap) 08/01/2017 08/01/2007, 10/08/1999, 09/27/1997 HPV Vaccines (1 - 3-dose SCDM series) 2022 COVID-19 Vaccine ( season) 2024 Influenza Vaccines (#1) 2025 06/04/20 11, 06/14/2010, 08/09/2009, Additional history exists Hepatitis B Vaccines Completed 04/20/1997, 04/21/1996, 1995 MMR Vaccines Completed 04/20/1997, 06/02/1996 HIB Vaccines Completed 07/28/1998, 04/06, 06/02/1996, Additional history exists Hepatitis A Vaccines Completed 10/23/2011, 08/11/20 10 Meningococcal Vaccine Completed 12/19/2012, 007 IPV Vaccines Aged Out No longer eligi ble based on patient's age to complete this topic Men B Vaccine Aged Out No longer elig ible based on patient's age to complete this topic Pneumococcal Vaccine Aged Out No long er eligible based on patient's age to complete this topic Care Teams Malware Analyst Relationship Specialty Start Date End Date Glenys Vazquez DO PCP - General 01/12/18
--- OUTSIDE RECORDS SUMMARY | 2025-05-03 16:10 | XMS_ITS | Encounter Summary ---
Author Organization [employer] Address [address] [place] [address] 7 [place] [address] Care Team Providers Care Construction Equipment Mechanic Name Role Phone Majo Swenson MD Primary Care Provider [phone] Yaritza Artis PharmD Unavailable [phone] Reason for Visit * Reason Comments Med Refill Encounter Details Date Type Department Care Team ([facility] Contact Info) Description 07/22/2024 Refill [facility] MED & PEDS [address] [place], [place] [phone] Adrianne Lehman MD [address] [place] [address] Social History Tobacco Use Types Packs/Day Years [...] with others, in a hotel, in a care home, living outside on the street, on [...] Info) Description 05/10/2025 1:30 PM EDT Telemedicine [facility] MED & PEDS [address] [place] [address] Yaritza Artis PharmD [address] [place] [address] documented as of this encounter Visit Diagnoses Not on filedocumented in this encounter Additional Health Concerns Assessment Noted Time PHQ-9 Depression Total Score: 11 024 4:23 PM EST documented as of this encounter Care Teams Construction Equipment Mechanic Relationship Specialty Start Date End Date Majo Swenson MD [address] [place] [address] PCP - General Internal Medicine 11/30/22 Yaritza Artis PharmD [address] [place] [address] Pharmacist Internal Medicine 10/16/24 documented as of this encounter
--- OUTSIDE RECORDS SUMMARY | 2025-05-03 16:10 | XMS_ITS | Encounter Summary ---
Author Organization [employer] Address [address] [place] [address] 7 [place] [address] Care Team Providers Care Fur Repair Inspector Name Role Phone Majo Swenson MD Primary Care Provider [phone] Yaritza Artis PharmD Unavailable [phone] Reason for Visit * Reason Onset Date Comments Med Refill 09/17/2024 Encounter Details Date Type Department Care Team ([facility] st Contact Info) Description 09/17/2024 Refill [facility] MED & PEDS [address] [place] [address] Majo Swenson MD [address] [place] [address] Social History Tobacco Use Types Packs/Day Years [...] with others, in a hotel, in a detention, living outside on the street, on a [...] Info) Description 05/10/2025 1:30 PM EDT Telemedicine [facility] MED & PEDS [address] [place] [address] Yaritza Artis PharmD [address] [place] [address] documented as of this encounter Visit Diagnoses Not on filedocumented in this encounter Additional Health Concerns Assessment Noted Time PHQ-9 Depression Total Score: 11 024 4:23 PM EST documented as of this encounter Care Teams Fur Repair Inspector Relationship Specialty Start Date End Date Majo Swenson MD [address] [place] [address] PCP - General Internal Medicine 11/30/22 Yaritza Artis PharmD [address] [place] [address] Pharmacist Internal Medicine 10/16/24 documented as of this encounter
--- OUTSIDE RECORDS SUMMARY | 2025-05-03 16:10 | XMS_ITS | Encounter Summary ---
Author Organization [employer] Address [address] [place] [address] 7 [place] [address] Care Team Providers Care Motion Graphics Artist Name Role Phone Majo Swenson MD Primary Care Provider [phone] Yaritza Artis PharmD Unavailable [phone] Reason for Visit * Reason Onset Date Comments Med Refill 03/20/2025 Encounter Details Date Type Department Care Team ([facility] st Contact Info) Description 03/20/2025 Refill [facility] MED & PEDS [address] [place], [place] [phone] Majo Swenson MD [address] [place] [address] Type 2 diabetes mellitus without complication, without long-term current use of insulin ([facility] Social History Tobacco Use Types Packs/Day Years [...] Info) Description 05/10/2025 1:30 PM EDT Telemedicine [facility] MED & PEDS [address] [place], [place] [phone] Yaritza Artis PharmD [address] [place] [address] documented as of this encounter Visit Diagnoses Diagnosis Type 2 diabetes mellitus without complication, without long-term current use of insulin ([facility]) documented in this encounter Additional Health Concerns Assessment Noted Time PHQ-9 Depression Total Score: 2 01/20/20 25 8:23 AM EDT documented as of this encounter Care Teams Motion Graphics Artist Relationship Specialty Start Date End Date Majo Swenson MD [address] [place], [place] PCP - General Internal Medicine 11/30/22 Yaritza Artis PharmD [address] [place], [place] [phone] Pharmacist Internal Medicine 10/16/24 documented as of this encounter
--- OUTSIDE RECORDS SUMMARY | 2025-05-03 16:10 | XMS_ITS | Encounter Summary ---
Author Organization [employer] Address [address] [place] [address] [address] [place] [address] Care Team Providers Care Oil Pipe Inspector Name Role Phone Majo Swenson MD Primary Care Provider [phone] Yaritza Artis PharmD Unavailable [phone] Reason for Visit * Reason Onset Date Comments Med Refill 07/14/2024 Encounter Details Date Type Department Care Team ([facility] st Contact Info) Description 07/14/2024 Refill [facility] MED & PEDS [address] [place] [address] Majo Swenson MD [address] [place] [address] Social History Tobacco Use Types Packs/Day Years [...] Info) Description 05/10/2025 1:30 PM EDT Telemedicine [facility] MED & PEDS [address] [place] [address] Yaritza Artis PharmD [address] [place] [address] documented as of this encounter Visit Diagnoses Not on filedocumented in this encounter Additional Health Concerns Assessment Noted Time PHQ-9 Depression Total Score: 11 024 4:23 PM EST documented as of this encounter Care Teams Oil Pipe Inspector Relationship Specialty Start Date End Date Majo Swenson MD [address] [place] [address] PCP - General Internal Medicine 11/30/22 Yaritza Artis PharmD [address] [place] [address] Pharmacist Internal Medicine 10/16/24 documented as of this encounter
--- OUTSIDE RECORDS SUMMARY | 2025-05-03 16:10 | XMS_ITS | Encounter Summary ---
Author Organization [facility] Address [address] [place] [address] Phone Care Team Providers Care Building Cleaner Name Role Phone Glenys Vazquez DO Primary Care Provider Unavaila ble Encounter Details Date Type Department Care Team (Late st Contact Info) Description 02/06/2011 Conversion Encounter [facility] [address] [place] [address] Social History Tobacco Use Types Packs/Day Years [...] on filedocumented in this encounter Care Teams Building Cleaner Relationship Specialty Start Date End Date Glenys Vazquez DO PCP - General 01/12/18 documented as of this encounter
--- OUTSIDE RECORDS SUMMARY | 2025-05-03 16:10 | XMS_ITS | Encounter Summary ---
Author Organization [employer] Address [address] [place] [address] [place] [address] Care Team Providers Care Senior Engineering Technician Name Role Phone Majo Swenson MD Primary Care Provider [phone] Yaritza Artis PharmD Unavailable [phone] Reason for Visit * Reason Onset Date Comments Med Refill 08/01/2024 Encounter Details Date Type Department Care Team ([facility] Contact Info) Description 08/01/2024 Refill [facility] CHC MED & PEDS [address] [place] [address] Majo Swenson MD 505 [place] [address] Social History Tobacco Use Types Packs/Day Years [...] with others, in a hotel, in a residential, living outside on the street, on a [...] Info) Description 05/10/2025 1:30 PM EDT Telemedicine [facility] CHC MED & PEDS [address] [place] [address] Yaritza Artis PharmD [address] [place] [address] documented as of this encounter Visit Diagnoses Not on filedocumented in this encounter Additional Health Concerns Assessment Noted Time PHQ-9 Depression Total Score: 11 024 4:23 PM EST documented as of this encounter Care Teams Senior Engineering Technician Relationship Specialty Start Date End Date Majo Swenson MD 505 [place] [address] PCP - General Internal Medicine 11/30/22 Yaritza Artis PharmD [address] [place] [address] Pharmacist Internal Medicine 10/16/24 documented as of this encounter
--- OUTSIDE RECORDS SUMMARY | 2025-05-03 16:10 | XMS_ITS | Encounter Summary ---
Author Organization [employer] Address [address] [facility] 7t [place] [address] Care Team Providers Care Refrigerated Cargo Clerk Name Role Phone Majo Swenson MD Primary Care Provider [phone] Yaritza Artis PharmD Unavailable [phone] Reason for Visit * Reason Comments Med Refill Encounter Details Date Type Department Care Team ([facility] st Contact Info) Description 02/15/2025 Refill [facility] CHC MED & PEDS [address] [place] [address] Yaritza Artis, PharmD 230 [place] [address] Social History Tobacco Use Types Packs/Day Years [...] Info) Description 05/10/2025 1:30 PM EDT Telemedicine [facility] MED & PEDS 505 [place] [address] Yaritza Artis PharmD 230 [place] [address] documented as of this encounter Visit Diagnoses Not on filedocumented in this encounter Additional Health Concerns Assessment Noted Time PHQ-9 Depression Total Score: 2 01/20/20 25 8:23 AM EDT documented as of this encounter Care Teams Refrigerated Cargo Clerk Relationship Specialty Start Date End Date Majo Swenson MD 505 [place] [address] PCP - General Internal Medicine 11/30/22 Yaritza Artis PharmD [address] [place] [address] Pharmacist Internal Medicine 10/16/24 documented as of this encounter
--- OUTSIDE RECORDS SUMMARY | 2025-05-03 16:10 | XMS_ITS | Encounter Summary ---
Author Organization [employer] Address [address] [place] [address] [place] [address] Care Team Providers Care Gas Turbine Assembler Name Role Phone Majo Swenson MD Primary Care Provider [phone] Yaritza Artis PharmD Unavailable [phone] Reason for Visit * Reason Onset Date Comments Med Refill 03/07/2024 Encounter Details Date Type Department Care Team ([facility] st Contact Info) Description 03/07/2024 Refill [facility] CHC MED & PEDS 505 [place] [address] Majo Swenson MD 505 [place] [address] Social History Tobacco Use Types Packs/Day Years [...] with others, in a hotel, in a [facility], living outside on the street, on a [...] Info) Description 05/10/2025 1:30 PM EDT Telemedicine [facility] CHC MED & PEDS [address] [place] [address] Yaritza Artis PharmD 230 [place] [address] documented as of this encounter Visit Diagnoses Not on filedocumented in this encounter Additional Health Concerns Assessment Noted Time PHQ-9 Depression Total Score: 11 024 4:23 PM EST documented as of this encounter Care Teams Gas Turbine Assembler Relationship Specialty Start Date End Date Majo Swenson MD 505 [place] [address] PCP - General Internal Medicine 11/30/22 Yaritza Artis PharmD 230 [place] [address] Pharmacist Internal Medicine 10/16/24 documented as of this encounter
--- OUTSIDE RECORDS SUMMARY | 2025-05-03 16:10 | XMS_ITS | Encounter Summary ---
Author Organization [employer] Address [address] [place] [address] 7 [place] [address] Care Team Providers Care Warehouse Guard Name Role Phone Majo Swenson MD Primary Care Provider [phone] Yaritza Artis PharmD Unavailable [phone] Reason for Visit * Reason Onset Date Comments Med Refill 02/27/2024 Encounter Details Date Type Department Care Team ([facility] st Contact Info) Description 02/27/2024 Refill [facility] CHC MED & PEDS 505 [place] [address] Donald Turner MD 505 [place] [address] Type 2 diabetes mellitus without complication, with long-term current use of insulin ([facility]) Social History Tobacco Use Types Packs/Day Years [...] Info) Description 05/10/2025 1:30 PM EDT Telemedicine [facility] CHC MED & PEDS [address] [place] [address] Yaritza Artis PharmD 230 [place] [address] documented as of this encounter Visit Diagnoses Diagnosis Type 2 diabetes mellitus without complication, with long-term current use of insulin ([facility]) documented in this encounter Additional Health Concerns Assessment Noted Time PHQ-9 Depression Total Score: 11 024 4:23 PM EST documented as of this encounter Care Teams Warehouse Guard Relationship Specialty Start Date End Date Majo Swenson MD 505 [place] [address] PCP - General Internal Medicine 11/30/22 Yaritza Artis PharmD [address] [place] [address] Pharmacist Internal Medicine 10/16/24 documented as of this encounter
--- OUTSIDE RECORDS SUMMARY | 2025-05-03 16:10 | XMS_ITS | Clinical Summary ---
Author Organization [address] [place] [address] [place] [phone] Phone Care Team Providers Care Trimmer Sawyer Name Role Phone Majo Swenson MD Primary Care Provider [phone] Allergies No known active allergies Medications No known medications Active Problems No known active problems Social History Tobacco Use Types Packs/Day Years [...] 100 12/25/2024 8:14 PM EDT Temperature 36.6 C (97.9 F) 12/25/2024 8:14 PM EDT Respiratory Rate 16 12/25/2024 8:14 PM EDT Oxygen Saturation 100% 12/25/2024 10:50 PM EDT Inhaled Oxygen Concentration - - Weight 95.7 kg (211 lb) 12/25/2024 8:14 PM EDT Height 165.1 cm (5' 5 ) 12/25/2024 8:14 PM EDT Body Mass Index 35.11 12/25/2024 8:14 PM EDT Plan of Treatment Health Maintenance Due Date Last Done Comments Diabetes: Annual Foot Exam 2005 Diabetes: Annual Retina Eye Exam 2005 Hepatitis B Vaccines (1 of 3 - 19+ 3-dose series) 2014 Pneumococcal Vaccine: Pediatrics (0 to 5 Years) and At-Risk Patients (6 to 49 Years) (1 of 2 - PCV) 2014 Cervical Cancer Screening: P ap Smear 2016 Diabetes: Annual GFR (Glomerular Filtration Rate) 11/05/2023 11/04/2022, 09/14/2022, 09/02/2022 COVID-19 Vaccine (2023-2 5 season) 2024 08/05/2021, 12/14/2020 Depression Screening 09/06/2024 Cholesterol Screening (Lipid Panel) 11/13/2024 Diabetes: Annual Urine Albumin-Creatinine Ratio (uACR) 11/13/2024 HIV Screening 11/13/2024 Hepatitis C Screening 11/13/2024 Social Influencers of Health Screening 11/13/2024 Hypertension/CHF/CAD Annual BMP Blood Test 12/18/2024 11/04/2022, 09/14/2022, 09/02/2022 Diabetes: Blood Sugar Contro l Test (HGBA1C) 04/15/2025 10/16/2024, 09/18/2022, 09/18/2022 Influenza Vaccine (#1) 2025 DTaP,Tdap,and Td Vaccines (2 - Td [...] on patient's age to complete this topic Insurance MEDICAID - [place] Care Teams Trimmer Sawyer Relationship Specialty Start Date End Date Majo Swenson MD [address] [place] [phone] PCP - General Internal Medicine 12/26/24
--- OUTSIDE RECORDS SUMMARY | 2025-05-03 16:10 | XMS_ITS | Encounter Summary ---
Author Organization [employer] Address [address] [place] [address] 7t [place] [address] Care Team Providers Care Payroll Benefits Clerk Name Role Phone Majo Swenson MD Primary Care Provider [phone] Yaritza Artis PharmD Unavailable [phone] Encounter Details Date Type Department Care Team (Latest Contact Info) Description 05/03/2025 Travel Social History Tobacco Use Types Packs/Day [...] the past 12 months, has t he [employer], gas, oil or water company threatened to [...] Info) Description 05/10/2025 1:30 PM EDT Telemedicine [facility] MED & PEDS 505 [place] [address] Yaritza Artis, PharmD 230 [place] [address] documented as of this encounter Visit Diagnoses Not on filedocumented in this encounter Additional Health Concerns Assessment Noted Time PHQ-9 Depression Total Score: 2 01/20/20 25 8:23 AM EDT documented as of this encounter Care Teams Payroll Benefits Clerk Relationship Specialty Start Date End Date Majo Swenson MD [address] [place] [address] PCP - General Internal Medicine 11/30/22 Yaritza Artis, Bess 230 [place] [address] Pharmacist Internal Medicine 10/16/24 documented as of this encounter
--- OUTSIDE RECORDS SUMMARY | 2025-05-03 16:10 | XMS_ITS | Encounter Summary ---
Author Organization [employer] Address [address] [place] [address] 7 [place] [address] Care Team Providers Care Gear Technician Name Role Phone Majo Swenson MD Primary Care Provider [phone] Yaritza Artis PharmD Unavailable [phone] Encounter Details Date Type Department Care Team ([facility] Contact Info) Description 10/04/2023 Orders Only [facility] CHC MED & PEDS [address] [place], [place] [phone] Donald Turner MD 505 [place] [address] Type 2 diabetes mellitus without complication, with long-term current use of insulin ([facility]) (Primary Dx) Social History Tobacco Use Types [...] with others, in a hotel, in a intermediate, living outside on the street, on a [...] Info) Description 05/10/2025 1:30 PM EDT Telemedicine [facility] MED & PEDS 505 [place] [address] Yaritza Artis PharmD 230 [place] [address] documented as of this encounter Visit Diagnoses Diagnosis Type 2 diabetes mellitus without complication, with long-term current use of insulin ([facility])- Primary documented in this encounter Additional Health Concerns Assessment Noted Time PHQ-9 Depression Total Score: 18 023 9:19 AM EDT documented as of this encounter Care Teams Gear Technician Relationship Specialty Start Date End Date Majo Swenson MD 505 [place] [address] PCP - General Internal Medicine 11/30/22 Yaritza Artis PharmD [address] [place] [address] Pharmacist Internal Medicine 10/16/24 documented as of this encounter
--- OUTSIDE RECORDS SUMMARY | 2025-05-03 16:10 | XMS_ITS | Encounter Summary ---
Author Organization [employer] Address [address] [place] [address] [place] [address] Care Team Providers Care Dry Cleaning Counter Clerk Name Role Phone Majo Swenson MD Primary Care Provider [phone] Yaritza Artis PharmD Unavailable [phone] Reason for Visit * Reason Onset Date Comments Med Refill 03/03/2024 Encounter Details Date Type Department Care Team ([facility] st Contact Info) Description 03/03/2024 Refill [facility] CHC MED & PEDS [address] [place] [address] Majo Swenson MD 505 [place] [address] Social History Tobacco Use Types Packs/Day Years [...] with others, in a hotel, in a alf, living outside on the street, on a [...] Info) Description 05/10/2025 1:30 PM EDT Telemedicine [facility] CHC MED & PEDS [address] [place] [address] Yaritza Artis PharmD 230 [place] [address] documented as of this encounter Visit Diagnoses Not on filedocumented in this encounter Additional Health Concerns Assessment Noted Time PHQ-9 Depression Total Score: 11 024 4:23 PM EST documented as of this encounter Care Teams Dry Cleaning Counter Clerk Relationship Specialty Start Date End Date Majo Swenson MD 505 [place] [address] PCP - General Internal Medicine 11/30/22 Yaritza Artis PharmD 230 [place] [address] Pharmacist Internal Medicine 10/16/24 documented as of this encounter
--- OUTSIDE RECORDS SUMMARY | 2025-05-03 16:10 | XMS_ITS | Encounter Summary ---
Author Organization [employer] Address [address] [facility] 7 [place] [address] Care Team Providers Care Sanding Machine Operator Name Role Phone Majo Swenson MD Primary Care Provider [phone] Yaritza Artis PharmD Unavailable [phone] Reason for Visit * Reason Onset Date Comments Call Back Request 04/10/2024 Encounter Details Date Type Department Care Team ([facility] Contact Info) Description 04/10/2024 Telephone [facility] MEDICINE [address] [place] [address] Majo Swenson MD 505 [place] [address] Call Back Request Social History Tobacco Use [...] with others, in a hotel, in a longterm, living outside on the street, on a [...] from mom requesting a call back in [employer] [place] and [place] denied by documented in this encounter Plan of Treatment Upcoming Encounters Date Type Department Care Team ([facility] st Contact Info) Description 05/10/2025 1:30 PM EDT Telemedicine [facility] CHC MED & PEDS 505 [place] [address] Yaritza Artis, PharmD 230 [place] [address] documented as of this encounter Visit Diagnoses Not on filedocumented in this encounter Additional Health Concerns Assessment Noted Time PHQ-9 Depression Total Score: 11 024 4:23 PM EST documented as of this encounter Care Teams Sanding Machine Operator Relationship Specialty Start Date End Date Majo Swenson MD 505 [place] [address] PCP - General Internal Medicine 11/30/22 Yaritza Artis, Bess [address] [place] [address] Pharmacist Internal Medicine 10/16/24 documented as of this encounter
--- OUTSIDE RECORDS SUMMARY | 2025-05-03 16:10 | XMS_ITS | Encounter Summary ---
Author Organization [employer] Address [address] [place] [address] 7 [place] [address] Care Team Providers Care Printed Circuit Boards Router Name Role Phone Majo Swenson MD Primary Care Provider [phone] Yaritza Artis PharmD Unavailable [phone] Reason for Visit * Reason Onset Date Comments Med Refill 02/13/2025 Encounter Details Date Type Department Care Team ([facility] Contact Info) Description 02/13/2025 Refill [facility] CHC MED & PEDS [address] [place], [place] [phone] Majo Swenson MD 505 [place] [address] Social History Tobacco Use Types Packs/Day Years [...] Info) Description 05/10/2025 1:30 PM EDT Telemedicine [facility] MED & PEDS [address] [place] [address] Yaritza Artis PharmD 230 [place] [address] documented as of this encounter Visit Diagnoses Not on filedocumented in this encounter Additional Health Concerns Assessment Noted Time PHQ-9 Depression Total Score: 2 01/20/20 8:23 AM EDT documented as of this encounter Care Teams Printed Circuit Boards Router Relationship Specialty Start Date End Date Majo Swenson MD [address] [place] [address] PCP - General Internal Medicine 11/30/22 Yaritza Artis PharmD [address] [place] [address] Pharmacist Internal Medicine 10/16/24 documented as of this encounter
--- OUTSIDE RECORDS SUMMARY | 2025-05-03 16:10 | XMS_ITS | Encounter Summary ---
Author Organization [employer] Address [address] [place] [address] 7t [place] [address] Care Team Providers Care Linen Manager Name Role Phone Majo Swenson MD Primary Care Provider [phone] Yaritza Artis PharmD Unavailable [phone] Reason for Visit * Reason Onset Date Comments Med Refill 03/07/2024 Encounter Details Date Type Department Care Team (Late st Contact Info) Description 03/07/2024 Refill [facility] 230 [place], [place] [phone] Nicolasa Quinn NP [address] [place] [address] Type 2 diabetes mellitus without complication, with long-term current use of insulin ([facility]) Social History Tobacco Use Types [...] the past 12 months, has t he [employer], gas, oil or water [employer] threatened to shut off services in your [...] Info) Description 05/10/2025 1:30 PM EDT Telemedicine [facility] CHC MED & PEDS 505 [place] [address] Yaritza Artis PharmD [address] [place] [address] documented as of this encounter Visit Diagnoses Diagnosis Type 2 diabetes mellitus without complication, with long-term current use of insulin ([facility]) documented in this encounter Additional Health Concerns Assessment Noted Time PHQ-9 Depression Total Score: 11 024 4:23 PM EST documented as of this encounter Care Teams Linen Manager Relationship Specialty Start Date End Date Majo Swenson MD [address] [place], [place] PCP - General Internal Medicine 11/30/22 Yaritza Artis, EzraD [address] [place] [address] Pharmacist Internal Medicine 10/16/24 documented as of this encounter
--- OUTSIDE RECORDS SUMMARY | 2025-05-03 16:10 | XMS_ITS | Encounter Summary ---
Author Organization [employer] Address [address] [facility] 7 [place] [address] Care Team Providers Care Water And Sewer Systems Superintendent Name Role Phone Majo Swenson MD Primary Care Provider [phone] Yaritza Artis PharmD Unavailable [phone] Reason for Visit * Reason Onset Date Comments Prior Authorization 04/14/2024 Encounter Details Date Type Department Care Team ([facility] st Contact Info) Description 04/14/2024 Telephone [facility] MEDICINE 230 [place] [address] Majo Swenson MD 505 [place] [address] Prior Authorization Social History Tobacco Use Types [...] If any questions for mom/pt please contact [phone]. documented in this encounter Plan of Treatment Upcoming Encounters Date Type Department Care Team (Late st Contact Info) Description 05/10/2025 1:30 PM EDT Telemedicine [facility] CHC MED & PEDS [address] [place] [address] Yaritza Artis, PharmD [address] [place] [address] documented as of this encounter Visit Diagnoses Not on filedocumented in this encounter Additional Health Concerns Assessment Noted Time PHQ-9 Depression Total Score: 11 024 4:23 PM EST documented as of this encounter Care Teams Water And Sewer Systems Superintendent Relationship Specialty Start Date End Date Majo Swenson MD [address] [place] [address] PCP - General Internal Medicine 11/30/22 Yaritza Artis PharmD [address] [place] [address] Pharmacist Internal Medicine 10/16/24 documented as of this encounter
--- OUTSIDE RECORDS SUMMARY | 2025-05-03 16:10 | XMS_ITS | Encounter Summary ---
Author Organization [employer] Address [address] [place] [address] 7 [place] [address] Care Team Providers Care Net Technical Architect Name Role Phone Majo Swenson MD Primary Care Provider [phone] Yaritza Artis PharmD Unavailable [phone] Reason for Visit * Reason Onset Date Comments Med Refill 03/07/2025 Encounter Details Date Type Department Care Team ([facility] st Contact Info) Description 03/07/2025 Refill [facility] CHC MED & PEDS 505 [place], [place] [phone] Majo Swenson MD 505 [place] [address] Social History Tobacco Use Types Packs/Day Years [...] your housing situation today? I have sukhdeep esipnoza 11/02/[address] you li [...] Info) Description 05/10/2025 1:30 PM EDT Telemedicine [facility] MED & PEDS 505 [place] [address] Yaritza Artis PharmD 230 [place] [address] documented as of this encounter Visit Diagnoses Not on filedocumented in this encounter Additional Health Concerns Assessment Noted Time PHQ-9 Depression Total Score: 2 01/20/20 8:23 AM EDT documented as of this encounter Care Teams Net Technical Architect Relationship Specialty Start Date End Date Majo Swenson MD 505 [place] [address] PCP - General Internal Medicine 11/30/22 Yaritza Artis PharmD 230 [place] [address] Pharmacist Internal Medicine 10/16/24 documented as of this encounter
--- OUTSIDE RECORDS SUMMARY | 2025-05-03 16:10 | XMS_ITS | Encounter Summary ---
Author Organization [employer] Address [address] [place] [address] 7 [place] [address] Care Team Providers Care Credit Specialist Name Role Phone Majo Swenson MD Primary Care Provider [phone] Yaritza Artis PharmD Unavailable [phone] Encounter Details Date Type Department Care Team ([facility] Contact Info) Description 04/28/2024 Orders Only [facility] CHC MED & PEDS 505 [place], [place] [phone] Majo Swenson MD 505 [place] [address] Social History Tobacco Use Types Packs/Day Years [...] Info) Description 05/10/2025 1:30 PM EDT Telemedicine [facility] CHC MED & PEDS 505 [place] [address] Yaritza Artis, PharmD 230 [place] [address] documented as of this encounter Visit Diagnoses Not on filedocumented in this encounter Additional Health Concerns Assessment Noted Time PHQ-9 Depression Total Score: 11 024 4:23 PM EST documented as of this encounter Care Teams Credit Specialist Relationship Specialty Start Date End Date Majo Swenson MD 505 [place] [address] PCP - General Internal Medicine 11/30/22 Yaritza Artis PharmD [address] [place] [address] Pharmacist Internal Medicine 10/16/24 documented as of this encounter
[2025-05-03 17:38] LABS: MANUAL DIFF FLAG NO
[2025-05-03 17:45] LABS: Hematocrit 42.8 % (37.0-47.0); Hemoglobin 13.6 g/dl (12.0-16.0); Imm Gran Abs Auto 0.07 X10*3/uL (0.00-0.03); Imm Gran Pct Auto 0.5 % (0.0-0.4); Lymphocytes Absolute Auto 2.9 X10*3/uL (1.2-4.9); Mean Corpuscular HGB Conc 31.8 g/dl (31.0-35.0); Mean Corpuscular Hemoglobin 27.0 pg (27.0-33.0); Mean Corpuscular Volume 84.9 fL (80.0-98.0); NRBC Abs Auto 0.000 X10*3/uL (0.0-0.012); NRBC Pct Auto 0.0 /100WBC (0.0-0.2); Platelet Count 456 X10*3/uL (160-400); Red Blood Count 5.04 X10*6/uL (4.20-5.50); White Blood Count 13.1 X10*3/uL (4.8-10.8)
== END 2025-05-03 15:47 | disposition home or self-care (01) ==
LOC: HO.CHCLDS 15:46
PROVIDERS: Visit Provider Family Medicine
DX: N30.00 Acute cystitis without hematuria (principal); Z31.69 Encounter for other general counseling and advice on procreation
CPT/HCPCS: 36415; 85025; 86762; 87086

== ENCOUNTER 2025-06-05 11:50 | Outpatient (REF) | payer MEDICAID, SELFPAY ==
--- OUTSIDE RECORDS SUMMARY | 2025-06-05 13:11 | XMS_ITS | Encounter Summary ---
Author Organization [facility] Address [address] [place] [address] Phone Care Team Providers Care Registered Radiologic Technologist Name Role Phone Glenys Vazquez DO Primary Care Provider Unavaila ble Encounter Details Date Type Department Care Team (Late st Contact Info) Description 02/06/2011 Conversion Encounter [facility] [address] [facility] [address] Social History Tobacco Use Types Packs/Day Years [...] on filedocumented in this encounter Care Teams Registered Radiologic Technologist Relationship Specialty Start Date End Date Glenys Vazquez DO PCP - General 01/12/18 documented as of this encounter
--- OUTSIDE RECORDS SUMMARY | 2025-06-05 13:11 | XMS_ITS | Encounter Summary ---
Author Organization [employer] Address [address] [place] [address] 7 [place] [address] Care Team Providers Care Receptionist Scheduler Name Role Phone Majo Swenson MD Primary Care Provider [phone] Yaritza Artis PharmD Unavailable [phone] Encounter Details Date Type Department Care Team ([facility] Contact Info) Description 12/06/2024 Orders Only [facility] CHC MED & PEDS [address] [place], [place] [phone] Donald Turner MD [address] [place] [address] Yeast infection (Primary Dx) Social History Tobacco [...] Care Team (Late st Contact Info) Description 06/12/2025 11:30 AM EDT Telemedicine [facility] CHC MED & PEDS [address] [place] [address] Yaritza Artis, PharmD [address] [place] [address] documented as of this encounter Visit Diagnoses Diagnosis Yeast infection- Primary documented in this encounter Additional Health Concerns Assessment Noted Time PHQ-9 Depression Total Score: 11 024 4:23 PM EST documented as of this encounter Care Teams Receptionist Scheduler Relationship Specialty Start Date End Date Majo Swenson MD [address] [place] [address] PCP - General Internal Medicine 11/30/22 Yaritza Artis PharmD [address] [place] [address] Pharmacist Internal Medicine 10/16/24 documented as of this encounter
--- OUTSIDE RECORDS SUMMARY | 2025-06-05 13:11 | XMS_ITS | Clinical Summary ---
Author Organization [employer] Address [address] [place] [address] 7[address] [place] [address] Care Team Providers Care Lathe Mechanic Name Role Phone Majo Swenson MD Primary Care Provider [phone] Yaritza Artis PharmD Unavailable [phone] Allergies No known active allergies Medications * This document contains information received from the source organization and may not represent a complete record from that organization. Blood Pressure kit Check BP daily as needed 1 kit 023 Active acetaminophen (Tylenol) 325 MG tablet TAKE TWO TABLETS EVERY 4 HOURS NEEDED, DO NOT EXCEED 12 tabs PER DAY 023 Active FreeStyle lancetsIndicati ons:Type 2 diabetes mellitus without complication, with long-term current use of insulin (HCC) 1 each by Other route 3 times daily. 100 each 11 024 Active FREESTYLE LITE test stripIndication s:Type 2 diabetes mellitus without complication, with long-term current use of insulin (HCC) Check BS tid 100 each 11 024 Active ammonium lactate (Lac-Hydrin) 12 % lotion Apply topically to skin daily 396 g 11 025 Active hydrOXYzine HCl (Atarax) 25 MG tablet Take 1 tablet (25 mg) by mouth every 8 (eight) hours if needed for anxiety. 90 tablet 025 Active NIFEdipine XL (Procardia XL) 30 MG 24 hr tabletIndicatio ns:Primary hypertension Take 1 tablet (30 mg) by mouth Once per day. Do not crush, chew, or split. 90 tablet 025 Active Vit-Fe Fumarate-FA ( Vitamins) 28-0.8 MG tabletIndicatio ns:Family Planning Take 1 tablet by mouth Once per day. 90 tablet 3 025 2025 Active loperamide (Imodium) 2 MG capsule Take 1 capsule daily as needed for diarrhea 025 Active Continuous Glucose Sensor (FreeStyle Ana 3 Plus Sensor) miscIndications :Type 2 diabetes mellitus without complication, without long-term current use of insulin (HCC) 1 each every 15 days. 2 each 025 Active sulfamethoxazol e-trimethoprim (Bactrim DS) 800-160 MG tablet Take 1 tablet by mouth 2 times daily. 025 Active insulin glargine (Lantus SoloStar) 100 UNIT/ML penIndications: Type 2 diabetes mellitus without complication, with long-term current use of insulin (HCC) Inject 10 units daily. Increase by 2 units every 3 days if fasting blood sugar is > 95mg/dl, up to a maximum of 20 units daily 15 mL 1 025 Active pen needle 32G x 4 mm miscIndications :Type 2 diabetes mellitus without complication, with long-term current use of insulin (HCC) Use once daily as directed 100 each 3 025 2025 Active Alcohol Swabs (Alcohol Prep) padsIndications :Type 2 diabetes mellitus without complication, with long-term current use of insulin (HCC) Use once daily with insulin 100 each 3 025 Active Alcohol Swabs (B-D SINGLE USE SWABS REGULAR) pads USE 1 DIRECTED WITH INSULIN ADMINISTRATION 4 TIMES DAILY 023 2024 Discontinued(M ed list cleanup (will not trigger notification to Pharmacy)) Tirzepatide (Mounjaro) 12.5 MG/0.5ML solution auto-injectorIn dications:Type 2 diabetes mellitus without complication, without long-term current use of insulin (HCC) Inject 12.5 mg under the skin 1 (one) time per week. 2 mL 1 025 2024 Discontinued(R eorder (will not trigger notification to Pharmacy)) metFORMIN XR (Glucophage-XR) 500 MG 24 hr tabletIndicatio ns:Type 2 diabetes mellitus without complication, without long-term current use of insulin (HCC) Take 1 tablet (500 mg) by mouth Once per day. Take with the largest meal of the day 90 tablet 1 025 2024 Discontinued(T herapy completed) nitrofurantoin, macrocrystal-mo nohydrate, (Macrobid) 100 MG capsule TAKE 1 CAPSULE (ORAL) 2 TIMES PER DAY FOR 5 DAYS MUST ADMINISTER WITH A MEAL/FOOD 025 2024 Discontinued(M ed list cleanup (will not trigger notification to Pharmacy)) fluconazole (Diflucan) 100 MG tablet TAKE ONE TABLET ON FIRST DAY OF ANTIBIOTICS AND ONE TABLET ON LAST DAY OF ANTIBIOTICS 025 2024 Discontinued(M ed list cleanup (will not trigger notification to Pharmacy)) Tirzepatide (Mounjaro) 12.5 MG/0.5ML solution auto-injectorIn dications:Type 2 diabetes mellitus without complication, without long-term current use of insulin (HCC) Inject 12.5 mg under the skin 1 (one) time per week. 2 mL 1 025 2024 Discontinued(T herapy completed) Active Problems Problem Noted Date Diagnosed Date Bilateral bunions 05/16/2025 Dysuria 05/16/2025 Callus of foot 05/16/2025 Nexplanon removal 04/12/2025 Assessment & Plan (04/12/2025 [...] 04/2023 Rh negative, antepartum 04/13/2023 Severe obesity (CMS/HCC) 04/13/2023 PEC with severe feature 04/13/2023 delivery [...] - - - - Epidural - - Beef Splitter - - Flu - - Tdap - Encounters Date Type Department Care Team Description 05/21/2025 Refill [facility] [address] [place] [address] Yaritza Artis PharmD Type 2 diabetes mellitus without complication, without long-term current use of insulin (CMS/HCC) 05/16/2025 11:15 AM EDT Office Visit [facility] [address] [place] [address] Majo Swenson MD Dysuria (Primary Dx); Encounter for immunization; Callus of foot; Bilateral bunions; Type 2 diabetes mellitus with other skin complication, without long-term current use of insulin (CMS/HCC) 05/16/2025 Travel 05/15/2025 Telephone [facility] [address] [place] [address] Majo Swenson MD Chart Prep 05/10/2025 1:30 PM EDT Telemedicine [facility] [address] [place] [address] Yaritza Artis PharmD Type 2 diabetes mellitus without complication, without long-term current use of insulin (CMS/HCC) (Primary Dx); Primary hypertension 05/10/2025 Travel 05/09/2025 Results Follow-Up [facility] [address] [place] [address] Lulu Tse MD CBC auto differential, Rubella Antibody (IgG), Immune Status, POCT Urine 05/08/2025 Telephone [facility] [address] [place] [address] Majo Swenson MD Prior Authorization 05/04/2025 Results Follow-Up [facility] [address] [place] [address] Majo Swenson MD POCT Urinalysis, Culture, Urine, Routine 05/03/2025 3:15 PM EDT Office Visit [facility] [address] [place] [address] Majo Swenson MD Acute cystitis without hematuria (Primary Dx); Primary hypertension; Moderate anxiety 05/03/2025 Travel 04/24/2025 2:00 PM EDT Telemedicine [facility] [address] [place] [address] Yaritza Artis PharmD Type 2 diabetes mellitus without complication, without long-term current use of insulin (CMS/HCC) (Primary Dx); Primary hypertension 04/24/2025 Travel 04/18/2025 Telephone [facility] [address] [place] [address] Majo Swenson MD CGM PA 04/10/2025 11:00 AM EDT Procedure Visit [facility] [address] [place] [address] Lulu Tse MD Nexplanon removal (Primary Dx); Encounter for preconception consultation 04/09/2025 2:00 PM EDT Telemedicine [facility] [address] [place] [address] Yaritza Artis PharmD Type 2 diabetes mellitus without complication, without long-term current use of insulin (CMS/HCC) (Primary Dx); Primary hypertension 04/09/2025 Orders Only [facility] [address] [place] [address] Majo Swenson MD 04/09/2025 Travel 04/03/2025 Travel 04/02/2025 Travel 03/20/2025 Refill [facility] [address] [place] [address] Majo Swenson MD Type 2 diabetes mellitus without complication, without long-term current use of insulin ([facility]) 03/07/2025 Refill [facility] [address] [place] [address] Majo Swenson MD from Last 3 Months Immunizations Immunization Administration Dates Next Due MMR 05/16/2025 Tdap 02/19/2023 Family History Medical History Relation [...] Sign Reading Time Taken Comments Blood Pressure 104/70 05/16/2025 11:12 AM EDT Pulse 116 05/16/2025 11:12 AM EDT Temperature 36.5 C (97.7 F) 05/16/2025 11:12 AM EDT Respiratory Rate 20 05/16/2025 11:12 AM EDT Oxygen Saturation 98% 04/10/2025 11:21 AM EDT Inhaled Oxygen Concentration - - Weight 100 kg (221 lb) 05/16/2025 11:12 AM EDT Height 166 cm (5' 5.35 ) 04/10/2025 11:21 AM EDT Body Mass Index 36.38 04/10/2025 11:21 AM EDT Plan of Treatment Upcoming Encounters Date Type Department Care Team (Late st Contact Info) Description 06/12/2025 11:30 AM EDT Telemedicine [facility] [address] [place] [address] Yaritza Artis, PharmD [address] [place] [address] Health Maintenance Due Date Last Done Comments [...] - PCV) 2014 COVID-19 Vaccine (3 - 2024- season) 2025 08/05/2021, 12/14/2020 Influenza Vaccine (#1) 2025 Diabetes: Hemoglobin A1C 06/01/2025 025, 01/03/2025, 10/16/2024, Additional history exists Disability Screening 10/31/2025 10/31/2024 Alcohol/Substance Use Screening 11/02/2025 11/02/2024 SDOH Screening 11/02/2025 11/02/2024 Diabetes: Foot Exam 12/14/2025 12/14/2024, 12/14/2024, 12/14/2024, Additional history exists Family Planning (PISQ) 12/18/2025 12/18/2024 Lipid Panel 01/03/2026 01/03/2025 Depression Screening 01/19/2026 01/19/2025, 10/31/19 24 Tobacco Screening 05/03/2026 05/03/2025 Cervical Cancer Screening 09/18/2027 HPV/Cotest 09/18/2027 09/18/2022 Pap Smear 09/18/2027 09/18/2022 DTaP/Tdap/Td Vaccines (2 [...] Associated Diagnosis Comments POCT URINALYSIS DIPSTICK Routine 05/16/2025 11:51 AM EDT Dysuria POCT URINALYSIS DIPSTICK Routine 05/03/2025 3:55 PM EDT Acute cystitis without hematuria RUBELLA AB (IGG), IMMUNE STATUS Routine 05/03/2025 3:48 PM EDT Encounter for preconception consultation CBC WITH AUTO DIFFERENTIAL Routine 05/03/2025 3:48 PM EDT Encounter for preconception consultation CULTURE, URINE, ROUTINE Routine 05/03/2025 3:30 PM EDT Acute cystitis without hematuria POCT , URINE Routine 04/10/2025 1:05 PM EDT Encounter for preconception consultation TN REMOVAL NON-BIODEGRADABLE DRUG DELIVERY IMPLANT Routine 04/10/2025 12:06 PM EDT Nexplanon removal POCT GLYCATED HEMOGLOBIN, TOTAL Routine 03/01/2025 4:24 PM EDT Type 2 diabetes mellitus without complication, without long-term current use of insulin ([facility]) Primary hypertension LIPID PANEL, STANDARD Routine 01/03/2025 11:53 AM EDT HM PAP/HPV Routine 09/18/2022 from Last 3 Months or Most Recently Relevant to Health Maintenance Results * (ABNORMAL) POCT Urinalysis (05/16/2025 11:51 AM EDT) Only the most recent of2 resultswithin the time period is included. Color, UA Yellow Clarity, UA Clear Glucose, UA Negative Bilirubin, UA Negative Ketones, UA Positive Comment:trace Spec Grav, UA 1.030 Blood, UA Positive(A) Negative, None Detected Comment:trace pH, UA 5.5 Protein, UA Many Comment:300mg/dL Urobilinogen, UA 0.2 Leukocytes, UA Negative Negative, Rare, Trace Nitrite, UA Negative Negative, None Detected Appearance, UA clear QC Media Lot # [id number] Lot# Expiration Date Urine 05/16/2025 11:5 1 AM EDT Majo Swenson MD POINT OF CARE TEST ENTER/EDIT ORDERABLES Final Result * (ABNORMAL) CBC auto differential (05/03/2025 3:48 PM EDT) White Blood Count 13.1(H) 4.8 - 10.8 X10*3/uL [facility] Red Blood Count 5.04 4.20 - 5.50 X10*6/uL [facility] Hemoglobin 13.6 12.0 - 16.0 g/dl [facility] Hematocrit 42.8 37.0 - 47.0 % [facility] Mean Corpuscular Volume 84.9 80.0 - 98.0 fL [facility] Mean Corpuscular Hemoglobin 27.0 27.0 - 33.0 pg [facility] Mean Corpuscular HGB Conc 31.8 31.0 - 35.0 g/dl [facility] Red Cell Distribution Width 13.0 11.0 - 16.0 % [facility] Platelet Count 456(H) 160 - 400 X10*3/uL [facility] Mean Platelet Volume 10.4 9.4 - 12.3 fL [facility] Neutrophils Percent Auto 66.3 45 - 73 % [facility] Imm Gran Pct Auto 0.5(H) 0.0 - 0.4 % [facility] Lymphocytes Percent Auto 22.3 20 - 40 % [facility] Monocytes Percent Auto 7.9 2 - 11 % [facility] Eosinophils Percent Auto 2.6 0 - 4 % [facility] Basophils Percent Auto 0.4 0 - 2 % [facility] NRBC Pct Auto 0.0 0.0 - 0.2 /100WBC [facility] Neutrophils Absolute Auto 8.7(H) 2.0 - 8.3 x10*3/uL [facility] Imm Gran Abs Auto 0.07(H) 0.00 - 0.03 X10*3/uL [facility] Lymphocytes Absolute Auto 2.9 1.2 - 4.9 X10*3/uL [facility] Monocytes Absolute Auto 1.0 0.1 - 1.2 X10*3/uL [facility] Eosinophils Absolute Auto 0.3 0.0 - 0.4 X10*3/uL [facility] Basophils Absolute Auto 0.1 0.0 - 0.2 X10*3/uL [facility] NRBC Abs Auto 0.000 0.0 - 0.012 X10*3/uL [facility] Blood Venous blood specimen / Unknown 05/03/2025 3:48 PM EDT 05/03/2025 5:27 PM EDT Lulu Tse MD LAB BLOOD ORDERABLES Final Re sult [facility] [address] [place] [address] [phone] * (ABNORMAL) Rubella Antibody (IgG), Immune Status (05/03/2025 3:48 PM EDT) Rubella IgG Antibody <0.90(A) Index [facility] Comment:Index Interpretation ----- <0.90 Not consistent with immunity 0.90-0.99 Equivocal > or = 1.00 Consistent with immunityThe presence of rubella IgG antibody suggestsimmunization or past or current infection withrubella virus.THIS TEST WAS PERFORMED AT:[employer] [place] [phone] RABAGO MD Blood Venous blood specimen / Unknown 05/03/2025 3:48 PM EDT 05/03/2025 5:27 PM EDT Lulu Tse MD LAB BLOOD ORDERABLES Final Re sult Performing Organization Address City/[facility]/ZIP Co de Phone Number [facility] [address] [place] [address] [phone] * Culture, Urine, Routine (05/03/2025 3:30 PM EDT) Urine Urine specimen obtained by clean catch procedure / Unknown 05/03/2025 3:30 PM EDT 05/03/2025 6:09 PM EDT Comment:UACC Narrative [facility] - 05/05/2025 9:04 AM EDT Urine Culture No growth. Specimen Source: Urine clean catch Majo Swenson MD LAB MICROBIOLOGY - GENERAL OR DERABLES Final Result Performing Organization Address [facility] Co de Phone Number [facility] [address] [place] [phone] * POCT Urine (04/10/2025 1:05 PM EDT) Preg Test, Ur Negative Negative, Indeterminate, None Detected, Invalid, Specimen unsatisfactory for evaluation, Weakly Positive, 2+ QC Media Lot # [id number] Lot# Expiration Date [id number] Urine 04/10/2025 1:05 PM EDT Lulu Tse MD POINT OF CARE TEST ENTER/EDIT ORDERABLES Final Result * TN REMOVAL NON-BIODEGRADABLE DRUG DELIVERY IMPLANT (04/10/2025 12:06 PM EDT) Narrative Lulu Tse MD - 04/10/2025 12:06 PM EDT Lulu [...] with steri-strips and pressure bandage applied: yes us Lulu Tse MD IN CLINIC/BEDSIDE ORDERABLES Final Result * (ABNORMAL) POCT HGB A1C (03/01/2025 4:24 PM EDT) Hemoglobin A1C 7.5(A) 4.0 - 6.0 % Blood 03/01/2025 4:24 PM EDT us Majo Swenson MD POINT OF CARE TEST ENTER/EDIT ORDERABLES Final Result * Lipid Panel, Standard (01/03/2025 11:53 AM EDT) Triglycerides 138 <150 mg/dL [facility] Comment:Desirable Triglyceri de: less than 150 mg/dLBorderline High Triglyceride 150-199 mg/dLHigh Triglyceride: 200-499 mg/dLVery High Triglyceride: greater than or equal to 5OO mg/dL Cholesterol 137 <200 mg/dL [facility] Comment:Desirable Cholestero l: less than 200 mg/dLBorderline High Cholesterol: 200-239 mg/dLHigh Cholesterol: greater than 239 mg/dL LDL Cholesterol Calculated 64 <100 mg/dL [facility] Comment:Desirable LDL: less than 100 mg/dLNear Optimal/Above Optimal LDL: 110- 129 mg/dLBorderline High LDL: 130-159 mg/dLHigh LDL: 160-189 mg/dLVery High LDL: greater than or equal to 190 mg/dL HDL Cholesterol 46 >40 mg/dL [facility] Comment:Desirable HDL: great er than 40 mg/dL Note: This HDL assay may give artificially low results in patients with liver disease. 01/03/2025 11:5 3 AM EDT 01/03/2025 2:15 PM EDT Majo Swenson MD LAB BLOOD ORDERABLES Final Re sult [facility] [address] [place] [address] [phone] * Hm Pap Smear (09/18/2022) Pap Negative for intraephithelial lesion or malignancy Negative for intraephithelial lesion or malignancy, Other HPV Undetected Undetected, Indeterminate, Quantitative, Not Detected Historical Provider HEALTH MAINTENANCE Final Result from Last 3 Months or Most Recently Relevant to Health Maintenance [place] [address] [place] [address] C3 [facility] MEDICAID STAND ADULT Care Teams Lathe Mechanic Relationship Specialty Start Date End Date Majo Swenson MD [address] [place] [address] PCP - General Internal Medicine 11/30/22 Yaritza Artis, EzraD [address] [place] [address] Pharmacist Internal Medicine 10/16/24
--- OUTSIDE RECORDS SUMMARY | 2025-06-05 13:11 | XMS_ITS | Encounter Summary ---
Author Organization [employer] Address [address] [place] [address] 7 [place] [address] Care Team Providers Care Manager Bar Name Role Phone Majo Swenson MD Primary Care Provider [phone] Yaritza Artis PharmD Unavailable [phone] Reason for Visit * Reason Onset Date Comments Med Refill 07/14/2024 Encounter Details Date Type Department Care Team ([facility] st Contact Info) Description 07/14/2024 Refill [facility] [address] [place] [address] Majo Swenson MD [address] [place] [address] Social History Tobacco Use Types Packs/Day Years [...] Info) Description 06/12/2025 11:30 AM EDT Telemedicine [facility] [address] [place] [address] Yaritza Artis PharmD [address] [place] [address] documented as of this encounter Visit Diagnoses Not on filedocumented in this encounter Additional Health Concerns Assessment Noted Time PHQ-9 Depression Total Score: 11 024 4:23 PM EST documented as of this encounter Care Teams Manager Bar Relationship Specialty Start Date End Date Majo Swenson MD [address] [place] [address] PCP - General Internal Medicine 11/30/22 Yaritza Artis PharmD [address] [place] [address] Pharmacist Internal Medicine 10/16/24 documented as of this encounter
--- OUTSIDE RECORDS SUMMARY | 2025-06-05 13:11 | XMS_ITS | Encounter Summary ---
Author Organization [employer] Address [address] [place] [address] 7 [place] [address] Care Team Providers Care Bending Machine Operator Name Role Phone Majo Swenson MD Primary Care Provider [phone] Yaritza Artis PharmD Unavailable [phone] Encounter Details Date Type Department Care Team ([facility] Contact Info) Description 05/04/2025 Results Follow-Up [facility] [address] [place], [place] [phone] Maoj Swenson MD [address] [place] [address] POCT Urinalysis, Culture, Urine, Routine Social History Tobacco Use Types Packs/Day Years [...] Info) Description 06/12/2025 11:30 AM EDT Telemedicine [facility] [address] [place] [address] Yaritza Artis PharmD [address] [place] [address] documented as of this encounter Visit Diagnoses Not on filedocumented in this encounter Additional Health Concerns Assessment Noted Time PHQ-9 Depression Total Score: 2 01/20/20 25 8:23 AM EDT documented as of this encounter Care Teams Bending Machine Operator Relationship Specialty Start Date End Date Majo Swenson MD [address] [place] [address] PCP - General Internal Medicine 11/30/22 Yaritza Artis PharmD [address] [place] [address] Pharmacist Internal Medicine 10/16/24 documented as of this encounter
--- OUTSIDE RECORDS SUMMARY | 2025-06-05 13:11 | XMS_ITS | Encounter Summary ---
Author Organization [employer] Address [address] [place] [address] 7 [place] [address] Care Team Providers Care Refuse Driver Name Role Phone Majo Swenson MD Primary Care Provider [phone] Yaritza Artis PharmD Unavailable [phone] Reason for Visit * Reason Comments Med Refill Encounter Details Date Type Department Care Team ([facility] Contact Info) Description 07/22/2024 Refill [facility] [address] [place], [place] [phone] Adrianne Lehman MD [address] [place] [address] Social History Tobacco Use Types Packs/Day Years [...] Info) Description 06/12/2025 11:30 AM EDT Telemedicine [facility] [address] [place] [address] Yaritza Artis PharmD [address] [place] [address] documented as of this encounter Visit Diagnoses Not on filedocumented in this encounter Additional Health Concerns Assessment Noted Time PHQ-9 Depression Total Score: 11 024 4:23 PM EST documented as of this encounter Care Teams Refuse Driver Relationship Specialty Start Date End Date Majo Swenson MD [address] [place] [address] PCP - General Internal Medicine 11/30/22 Yaritza Artis PharmD [address] [place] [address] Pharmacist Internal Medicine 10/16/24 documented as of this encounter
--- OUTSIDE RECORDS SUMMARY | 2025-06-05 13:11 | XMS_ITS | Clinical Summary ---
Author Organization [address] [place] [address] [place] [phone] Phone Care Team Providers Care Client Support Representative Name Role Phone Majo Swenson MD Primary Care Provider [phone] Allergies No known active allergies Medications No [...] Cervical Cancer Screening: P ap Smear 2016 HPV Vaccines (1 - 3-dose SCD M series) 2022 Diabetes: Annual GFR (Glomerular Filtration Rate) 11/05/2023 11/04/2022, 09/14/2022, 09/02/2022 Depression Screening 09/06/2024 Cholesterol Screening (Lipid Panel) 11/13/2024 Diabetes: Annual Urine Albumin-Creatinine Ratio (uACR) 11/13/2024 HIV Screening 11/13/2024 Hepatitis C Screening 11/13/2024 Social Influencers of Health Screening 11/13/2024 Hypertension/CHF/CAD Annual BMP Blood Test 12/18/2024 11/04/2022, 09/14/2022, 09/02/2022 Diabetes: Blood Sugar Contro l Test (HGBA1C) 04/15/2025 10/16/2024, 09/18/2022, 09/18/2022 COVID-19 Vaccine (3 - 2024-2 6 season) 2025 08/05/2021, 12/14/2020 Influenza Vaccine (#1) 2025 DTaP,Tdap,and Td Vaccines (2 - Td or Tdap) 02/19/2033 02/19/2023 RSV Immunization Adult Patients (1 - 1-dose 75+ series) 2070 HIB [...] to complete this topic Insurance MEDICAID - [place] Care Teams Client Support Representative Relationship Specialty Start Date End Date Majo Swenson MD [address] [place] [address] [id number] PCP - General Internal Medicine 12/26/24
--- OUTSIDE RECORDS SUMMARY | 2025-06-05 13:11 | XMS_ITS | Encounter Summary ---
Author Organization [employer] Address [address] [place] [address] [place] [address] Care Team Providers Care Hydroponics Grower Name Role Phone Majo Swenson MD Primary Care Provider [phone] Yaritza Artis PharmD Unavailable [phone] Reason for Visit * Reason Onset Date Comments Med Refill 08/01/2024 Encounter Details Date Type Department Care Team ([facility] Contact Info) Description 08/01/2024 Refill [facility] [address] [place] [address] Majo Swenson MD [address] [place] [address] Social History Tobacco Use Types Packs/Day Years [...] with others, in a hotel, in a halfway, living outside on the street, on a [...] Info) Description 06/12/2025 11:30 AM EDT Telemedicine [facility] [address] [place] [address] Yaritza Artis PharmD [address] [place] [address] documented as of this encounter Visit Diagnoses Not on filedocumented in this encounter Additional Health Concerns Assessment Noted Time PHQ-9 Depression Total Score: 11 024 4:23 PM EST documented as of this encounter Care Teams Hydroponics Grower Relationship Specialty Start Date End Date Majo Swenson MD [address] [place] [address] PCP - General Internal Medicine 11/30/22 Yaritza Artis PharmD [address] [place] [address] Pharmacist Internal Medicine 10/16/24 documented as of this encounter
--- OUTSIDE RECORDS SUMMARY | 2025-06-05 13:11 | XMS_ITS | Encounter Summary ---
Author Organization [employer] Address [address] [place] [address] 7 [place] [address] Care Team Providers Care Shipping And Receiving Specialist Name Role Phone Majo Swenson MD Primary Care Provider [phone] Yaritza Artis PharmD Unavailable [phone] Reason for Visit * Reason Onset Date Comments Med Refill 01/03/2025 Encounter Details Date Type Department Care Team ([facility] Contact Info) Description 01/03/2025 Refill [facility] CHC MED & PEDS [address] [place], [place] [phone] Majo Swenson MD 505 [place] [address] Social History Tobacco Use Types Packs/Day Years [...] 06/12/2025 11:30 AM EDT Telemedicine [facility] MED & PEDS [address] [place] [address] Yaritza Artis PharmD [address] [place] [address] documented as of this encounter Visit Diagnoses Not on filedocumented in this encounter Additional Health Concerns Assessment Noted Time PHQ-9 Depression Total Score: 11 024 4:23 PM EST documented as of this encounter Care Teams Shipping And Receiving Specialist Relationship Specialty Start Date End Date Majo Swenson MD 505 [place] [address] PCP - General Internal Medicine 11/30/22 Yaritza Artis PharmD [address] [place] [address] Pharmacist Internal Medicine 10/16/24 documented as of this encounter
--- OUTSIDE RECORDS SUMMARY | 2025-06-05 13:11 | XMS_ITS | Clinical Summary ---
Author Organization [facility] Address [address] [place] [phone] Phone Care Team Providers Care Optometrist Owner Name Role Phone Glenys Vazquez DO Primary [...] Vaccines (1 - 3-dose SCDM series) 2022 Influenza Vaccines (#1) 2025 06/04/20 11, 06/14/2010, 08/09/2009, Additional history exists COVID-19 Vaccine (2024- season) 2025 Hepatitis B Vaccines Completed 04/20/1997, 04/21/1996, 1995 [...] age to complete this topic Care Teams Optometrist Owner Relationship Specialty Start Date End Date Glenys Vazquez DO PCP - General 01/12/18
--- OUTSIDE RECORDS SUMMARY | 2025-06-05 13:12 | XMS_ITS | Encounter Summary ---
Author Organization [employer] Address [address] [place] [address] 7 [place] [address] Care Team Providers Care Outcome Analyst Name Role Phone Majo Swenson MD Primary Care Provider [phone] Yaritza Artis PharmD Unavailable [phone] Reason for Visit * Reason Onset Date Comments Med Refill 03/20/2025 Encounter Details Date Type Department Care Team ([facility] st Contact Info) Description 03/20/2025 Refill [facility] CHC MED & PEDS [address] [place], [place] [phone] Majo Swenson MD 505 [place] [address] Type 2 diabetes mellitus without complication, without long-term current use of insulin ([facility]) Social History Tobacco Use Types Packs/Day Years [...] Info) Description 06/12/2025 11:30 AM EDT Telemedicine [facility] CHC MED & PEDS [address] [place], [place] [phone] Yaritza Artis PharmD 230 [place] [address] documented as of this encounter Visit Diagnoses Diagnosis Type 2 diabetes mellitus without complication, without long-term current use of insulin (HCC) documented in this encounter Additional Health Concerns Assessment Noted Time PHQ-9 Depression Total Score: 2 01/20/20 25 8:23 AM EDT documented as of this encounter Care Teams Outcome Analyst Relationship Specialty Start Date End Date Majo Swenson MD [address] [place], [place] PCP - General Internal Medicine 11/30/22 Yaritza Artis PharmD [address] [place], [place] [phone] Pharmacist Internal Medicine 10/16/24 documented as of this encounter
--- OUTSIDE RECORDS SUMMARY | 2025-06-05 13:12 | XMS_ITS | Encounter Summary ---
Author Organization [employer] Address [address] [place] [address] [place] [address] Care Team Providers Care Performance Test Consultant Name Role Phone Majo Swenson MD Primary Care Provider [phone] Yaritza Artis PharmD Unavailable [phone] Reason for Visit * Reason Onset Date Comments Med Refill 03/07/2024 Encounter Details Date Type Department Care Team ([facility] st Contact Info) Description 03/07/2024 Refill [facility] CHC MED & PEDS [address] [place] [address] Majo Swenson MD 505 [place] [address] Social History Tobacco Use Types Packs/Day Years [...] with others, in a hotel, in a chcf, living outside on the street, on a [...] Info) Description 06/12/2025 11:30 AM EDT Telemedicine [facility] CHC MED & PEDS [address] [place] [address] Yaritza Artis PharmD [address] [place] [address] documented as of this encounter Visit Diagnoses Not on filedocumented in this encounter Additional Health Concerns Assessment Noted Time PHQ-9 Depression Total Score: 11 024 4:23 PM EST documented as of this encounter Care Teams Performance Test Consultant Relationship Specialty Start Date End Date Majo Swenson MD 505 [place] [address] PCP - General Internal Medicine 11/30/22 Yaritza Artis PharmD 230 [place] [address] Pharmacist Internal Medicine 10/16/24 documented as of this encounter
--- OUTSIDE RECORDS SUMMARY | 2025-06-05 13:12 | XMS_ITS | Encounter Summary ---
Author Organization [employer] Address [address] [facility] 7t [place] [address] Care Team Providers Care Veterinary Technician Assistant Name Role Phone Majo Swenson MD Primary Care Provider [phone] Yaritza Artis PharmD Unavailable [phone] Reason for Visit * Reason Comments Med Refill Encounter Details Date Type Department Care Team ([facility] st Contact Info) Description 02/15/2025 Refill [facility] CHC MED & PEDS [address] [place] [address] Yaritza Artis, PharmD [address] [place] [address] Social History Tobacco Use Types Packs/Day Years [...] Info) Description 06/12/2025 11:30 AM EDT Telemedicine [facility] MED & PEDS [address] [place] [address] Yaritza Artis PharmD [address] [place] [address] documented as of this encounter Visit Diagnoses Not on filedocumented in this encounter Additional Health Concerns Assessment Noted Time PHQ-9 Depression Total Score: 2 01/20/20 25 8:23 AM EDT documented as of this encounter Care Teams Veterinary Technician Assistant Relationship Specialty Start Date End Date Majo Swenson MD 505 [place] [address] PCP - General Internal Medicine 11/30/22 Yaritza Artis PharmD [address] [place] [address] Pharmacist Internal Medicine 10/16/24 documented as of this encounter
--- OUTSIDE RECORDS SUMMARY | 2025-06-05 13:12 | XMS_ITS | Encounter Summary ---
Author Organization [employer] Address [address] [place] [address] 7 [place] [address] Care Team Providers Care National Sales Representative Name Role Phone Majo Swenson MD Primary Care Provider [phone] Yaritza Artis PharmD Unavailable [phone] Reason for Visit * Reason Onset Date Comments Med Refill 02/27/2024 Encounter Details Date Type Department Care Team ([facility] st Contact Info) Description 02/27/2024 Refill [facility] CHC MED & PEDS 505 [place] [address] Donald Turner MD [address] [place] [address] Type 2 diabetes mellitus without complication, with long-term current use of insulin ([facility]) Social History Tobacco Use Types Packs/Day Years [...] 06/12/2025 11:30 AM EDT Telemedicine [facility] CHC MED & PEDS 505 [place] [address] Yaritza Artis PharmD [address] [place] [address] documented as of this encounter Visit Diagnoses Diagnosis Type 2 diabetes mellitus without complication, with long-term current use of insulin (HCC) documented in this encounter Additional Health Concerns Assessment Noted Time PHQ-9 Depression Total Score: 11 024 4:23 PM EST documented as of this encounter Care Teams National Sales Representative Relationship Specialty Start Date End Date Majo Swenson MD [address] [place] [address] PCP - General Internal Medicine 11/30/22 Yaritza Artis, Bess [address] [place] [address] Pharmacist Internal Medicine 10/16/24 documented as of this encounter
--- OUTSIDE RECORDS SUMMARY | 2025-06-05 13:12 | XMS_ITS | Encounter Summary ---
Author Organization [employer] Address [address] [place] [address] 7t [place] [address] Care Team Providers Care Rubber Stamp Maker Name Role Phone Majo Swenson MD Primary Care Provider [phone] Yaritza Artis PharmD Unavailable [phone] Reason for Visit * Reason Onset Date Comments Med Refill 03/07/2024 Encounter Details Date Type Department Care Team (Late st Contact Info) Description 03/07/2024 Refill [facility] 230 [place], [place] [phone] Nicolasa Quinn NP 230 [place] [address] Type 2 diabetes mellitus without complication, with long-term current use of insulin ([facility]) Social History Tobacco Use Types Packs/Day [...] with others, in a hotel, in a mcc, living outside on the street, on a [...] the past 12 months, has t he iFulfillment, gas, oil or water company threatened to [...] Info) Description 06/12/2025 11:30 AM EDT Telemedicine [facility] CHC MED & PEDS [address] [place] [address] Yaritza Artis PharmD [address] [place] [address] documented as of this encounter Visit Diagnoses Diagnosis Type 2 diabetes mellitus without complication, with long-term current use of insulin (HCC) documented in this encounter Additional Health Concerns Assessment Noted Time PHQ-9 Depression Total Score: 11 024 4:23 PM EST documented as of this encounter Care Teams Rubber Stamp Maker Relationship Specialty Start Date End Date Majo Swenson MD [address] [place], [place] PCP - General Internal Medicine 11/30/22 Yaritza Artis, PharmD [address] [place], [place] [phone] Pharmacist Internal Medicine 10/16/24 documented as of this encounter
--- OUTSIDE RECORDS SUMMARY | 2025-06-05 13:12 | XMS_ITS | Encounter Summary ---
Author Organization [employer] Address [address] [facility] 7 [place] [address] Care Team Providers Care Derrick Follower Name Role Phone Majo Swenson MD Primary Care Provider [phone] Yaritza Artis PharmD Unavailable [phone] Reason for Visit * Reason Onset Date Comments Call Back Request 04/10/2024 Encounter Details Date Type Department Care Team ([facility] Contact Info) Description 04/10/2024 Telephone [facility] [address] [place] [address] Majo Swenson MD 505 [place] [address] Call Back Request Social History Tobacco Use [...] from mom requesting a call back in [email or web address] Keavy and Sensor denied by documented in this encounter Plan of Treatment Upcoming Encounters Date Type Department Care Team ([facility] st Contact Info) Description 06/12/2025 11:30 AM EDT Telemedicine [facility] CHC MED & PEDS 505 [place] [address] Yaritza Artis, PharmD 230 [place] [address] documented as of this encounter Visit Diagnoses Not on filedocumented in this encounter Additional Health Concerns Assessment Noted Time PHQ-9 Depression Total Score: 11 024 4:23 PM EST documented as of this encounter Care Teams Derrick Follower Relationship Specialty Start Date End Date Majo Swenson MD 505 [place] [address] PCP - General Internal Medicine 11/30/22 Yaritza Artis, Bess [address] [place] [address] Pharmacist Internal Medicine 10/16/24 documented as of this encounter
--- OUTSIDE RECORDS SUMMARY | 2025-06-05 13:12 | XMS_ITS | Encounter Summary ---
Author Organization [employer] Address [address] [place] [address] 7 [place] [address] Care Team Providers Care Mineral Resources Inspector Name Role Phone Majo Swenson MD Primary Care Provider Yaritza Artis PharmD Unavailable [phone] Reason for Visit * Reason Onset Date Comments Med Refill 03/07/2025 Encounter Details Date Type Department Care Team ([facility] st Contact Info) Description 03/07/2025 Refill [facility] CHC MED & PEDS [address] [place], [place] [phone] Majo Swenson MD 505 [place] [address] Social History Tobacco Use Types Packs/Day Years [...] Info) Description 06/12/2025 11:30 AM EDT Telemedicine [facility] MED & PEDS [address] [place] [address] Yaritza Artis PharmD [address] [place] [address] documented as of this encounter Visit Diagnoses Not on filedocumented in this encounter Additional Health Concerns Assessment Noted Time PHQ-9 Depression Total Score: 2 01/20/20 8:23 AM EDT documented as of this encounter Care Teams Mineral Resources Inspector Relationship Specialty Start Date End Date Majo Swenson MD 505 [place] [address] PCP - General Internal Medicine 11/30/22 Yaritza Artis PharmD [address] [place] [address] Pharmacist Internal Medicine 10/16/24 documented as of this encounter
--- OUTSIDE RECORDS SUMMARY | 2025-06-05 13:12 | XMS_ITS | Encounter Summary ---
Author Organization [employer] Address [address] [place] [address] 7 [place] [address] Care Team Providers Care Cosmetics Demonstrator Name Role Phone Majo Swenson MD Primary Care Provider [phone] Yaritza Artis PharmD Unavailable Reason for Visit * Reason Onset Date Comments Med Refill 02/13/2025 Encounter Details Date Type Department Care Team ([facility] Contact Info) Description 02/13/2025 Refill [facility] CHC MED & PEDS [address] [place], [place] [phone] Majo Swenson MD [address] [place] [address] Social History Tobacco Use Types Packs/Day Years [...] Info) Description 06/12/2025 11:30 AM EDT Telemedicine [facility] MED & PEDS [address] [place] [address] Yaritza Artis PharmD [address] [place] [address] documented as of this encounter Visit Diagnoses Not on filedocumented in this encounter Additional Health Concerns Assessment Noted Time PHQ-9 Depression Total Score: 2 01/20/20 8:23 AM EDT documented as of this encounter Care Teams Cosmetics Demonstrator Relationship Specialty Start Date End Date Majo Swenson MD [address] [place] [address] PCP - General Internal Medicine 11/30/22 Yaritza Artis PharmD [address] [place] [address] Pharmacist Internal Medicine 10/16/24 documented as of this encounter
--- OUTSIDE RECORDS SUMMARY | 2025-06-05 13:12 | XMS_ITS | Encounter Summary ---
Author Organization [employer] Address [address] [place] [address] 7 [place] [address] Care Team Providers Care Field Traffic Investigator Name Role Phone Majo Swenson MD Primary Care Provider [phone] Yaritza Artis PharmD Unavailable [phone] Encounter Details Date Type Department Care Team ([facility] Contact Info) Description 04/28/2024 Orders Only [facility] CHC MED & PEDS [address] [place], [place] [phone] Majo Swenson MD 505 [place] [address] Social History Tobacco Use Types Packs/Day Years [...] Info) Description 06/12/2025 11:30 AM EDT Telemedicine [facility] CHC MED & PEDS [address] [place] [address] Yaritza Artis, PharmD [address] [place] [address] documented as of this encounter Visit Diagnoses Not on filedocumented in this encounter Additional Health Concerns Assessment Noted Time PHQ-9 Depression Total Score: 11 024 4:23 PM EST documented as of this encounter Care Teams Field Traffic Investigator Relationship Specialty Start Date End Date Majo Swenson MD 505 [place] [address] PCP - General Internal Medicine 11/30/22 Yaritza Artis PharmD [address] [place] [address] Pharmacist Internal Medicine 10/16/24 documented as of this encounter
--- OUTSIDE RECORDS SUMMARY | 2025-06-05 13:12 | XMS_ITS | Encounter Summary ---
Author Organization [employer] Address [address] [place] [address] 7 [place] [address] Care Team Providers Care Stock And Station Agent Name Role Phone Majo Swenson MD Primary Care Provider [phone] Yaritza Artis PharmD Unavailable [phone] Encounter Details Date Type Department Care Team ([facility] Contact Info) Description 10/04/2023 Orders Only [facility] CHC MED & PEDS [address] [place], [place] [phone] Donald Turner MD [address] [place] [address] Type 2 diabetes mellitus without complication, with long-term current use of insulin ([facility]) (Primary Dx) Social History Tobacco Use Types [...] [facility] MED & PEDS 505 [place] [address] Yaritza Artis PharmD [address] [place] [address] documented as of this encounter Visit Diagnoses Diagnosis Type 2 diabetes mellitus without complication, with long-term current use of insulin (HCC)- Primary documented in this encounter Additional Health Concerns Assessment Noted Time PHQ-9 Depression Total Score: 18 023 9:19 AM EDT documented as of this encounter Care Teams Stock And Station Agent Relationship Specialty Start Date End Date Majo Swenson MD [address] [place] [address] PCP - General Internal Medicine 11/30/22 Yaritza Artis PharmD [address] [place] [address] Pharmacist Internal Medicine 10/16/24 documented as of this encounter
--- OUTSIDE RECORDS SUMMARY | 2025-06-05 13:12 | XMS_ITS | Encounter Summary ---
Author Organization [employer] Address [address] [place] [address] 7 [place] [address] Care Team Providers Care Pipe Fitter Apprentice Name Role Phone Majo Swenson MD Primary Care Provider [phone] Yaritza Artis PharmD Unavailable [phone] Reason for Visit * Reason Onset Date Comments Med Refill 09/17/2024 Encounter Details Date Type Department Care Team ([facility] st Contact Info) Description 09/17/2024 Refill [facility] CHC MED & PEDS 505 [place] [address] Majo Swenson MD 505 [place] [address] Social History Tobacco Use Types Packs/Day Years [...] with others, in a hotel, in a penitentiary, living outside on the street, on a [...] Info) Description 06/12/2025 11:30 AM EDT Telemedicine [facility] CHC MED & PEDS 505 [place] [address] Yaritza Artis PharmD [address] [place] [address] documented as of this encounter Visit Diagnoses Not on filedocumented in this encounter Additional Health Concerns Assessment Noted Time PHQ-9 Depression Total Score: 11 024 4:23 PM EST documented as of this encounter Care Teams Pipe Fitter Apprentice Relationship Specialty Start Date End Date Majo Swenson MD [address] [place] [address] PCP - General Internal Medicine 11/30/22 Yaritza Artis PharmD [address] [place] [address] Pharmacist Internal Medicine 10/16/24 documented as of this encounter
--- OUTSIDE RECORDS SUMMARY | 2025-06-05 13:12 | XMS_ITS | Encounter Summary ---
Author Organization [employer] Address [address] [place] [address] [place] [address] Care Team Providers Care Landcare Officer Name Role Phone Majo Swenson MD Primary Care Provider [phone] Yaritza Artis PharmD Unavailable [phone] Reason for Visit * Reason Onset Date Comments Med Refill 03/03/2024 Encounter Details Date Type Department Care Team ([facility] st Contact Info) Description 03/03/2024 Refill [facility] CHC MED & PEDS [address] [place] [address] Majo Swenson MD [address] [place] [address] Social History Tobacco Use Types Packs/Day Years [...] Info) Description 06/12/2025 11:30 AM EDT Telemedicine [facility] CHC MED & PEDS [address] [place] [address] Yaritza Artis PharmD [address] [place] [address] documented as of this encounter Visit Diagnoses Not on filedocumented in this encounter Additional Health Concerns Assessment Noted Time PHQ-9 Depression Total Score: 11 024 4:23 PM EST documented as of this encounter Care Teams Landcare Officer Relationship Specialty Start Date End Date Majo Swenson MD [address] [place] [address] PCP - General Internal Medicine 11/30/22 Yaritza Artis PharmD [address] [place] [address] Pharmacist Internal Medicine 10/16/24 documented as of this encounter
--- OUTSIDE RECORDS SUMMARY | 2025-06-05 13:12 | XMS_ITS | Encounter Summary ---
Author Organization [employer] Address [address] [facility] 7 [place] [address] Care Team Providers Care Fiber Artist Name Role Phone Majo Swenson MD Primary Care Provider [phone] Yaritza Artis PharmD Unavailable Reason for Visit * Reason Onset Date Comments Prior Authorization 04/14/2024 Encounter Details Date Type Department Care Team ([facility] st Contact Info) Description 04/14/2024 Telephone [facility] [address] [place] [address] Majo Swenson MD 505 [place] [address] Prior Authorization Social History Tobacco Use Types [...] for over 2 weeks and needs to belt picker medication today if possible. If any questions for mom/pt please contact [phone]. documented in this encounter Plan of Treatment Upcoming Encounters Date Type Department Care Team (Late st Contact Info) Description 06/12/2025 11:30 AM EDT Telemedicine [facility] CHC MED & PEDS [address] [place] [address] Yaritza Artis, PharmD 230 [place] [address] documented as of this encounter Visit Diagnoses Not on filedocumented in this encounter Additional Health Concerns Assessment Noted Time PHQ-9 Depression Total Score: 11 024 4:23 PM EST documented as of this encounter Care Teams Fiber Artist Relationship Specialty Start Date End Date Majo Swenson MD 505 [place] [address] PCP - General Internal Medicine 11/30/22 Yaritza Artis PharmD [address] [place] [address] Pharmacist Internal Medicine 10/16/24 documented as of this encounter
== END 2025-06-05 11:51 | disposition home or self-care (01) ==
LOC: HO.CHCLDS 11:50
PROVIDERS: Visit Provider Pediatrics
DX: Z32.00 Encounter for pregnancy test, result unknown (principal)
CPT/HCPCS: 36415; 84702